=== PATIENT | female | born 1955 | race Caucasian/White ===

== ENCOUNTER 2018-10-01 09:28 | Observation (INO) ==
--- NOTE | 2018-10-01 10:51 | XRay Report ---
XR chest 1V portable CLINICAL HISTORY: Chest Pain COMPARISON STUDY: Chest radiograph September 11, 2015. FINDINGS: Anterior cervical spine fusion is incidentally noted. There is no pneumothorax or pleural e ffusion. Linear left lower lung opacity favors atelectasis. There is mild cardiomegaly. There is no c onsolidation to suggest pneumonia. There is no evidence for pulmonary edema. Lumbar spine fusion hard bond is partially imaged. IMPRESSION: No acute cardiopulmonary findings. Electronically signed by: Juwan Terry M.D. 10/01/2018 10:49 AM
[2018-10-01 10:59] LABS: Basophils # (auto) 0.01 K/uL (0-0.2); Basophils % (auto) 0.2 %; Eosinophils # (auto) 0.08 K/uL (0-0.5); Eosinophils % (auto) 1.3 %; Hematocrit (blood only) 31.8 % (37-47); Hemoglobin 10.6 g/dL (12.0-16.0); Lymphocytes # (auto) 2.07 K/uL (1.2-3.4); Lymphocytes % (auto) 34.8 %; Mean Corpuscular Hgb Conc 33.3 g/dL (32-36); Mean Corpuscular Volume 89.8 fL (80-100); Mean Platelet Volume 9.3 fL (7.4-10.4); Monocytes # (auto) 0.44 K/uL (0.11-0.59); Monocytes % (auto) 7.4 %; Neutrophils # (auto) 3.35 K/uL (1.4-6.5); Neutrophils % (auto) 56.3 %; Platelet Count 258 K/uL (130-400); RDW Coefficient of Variation 14.1 % (11.5-14.5); RDW Standard Deviation 46.8 fL (36.4-46.3); Red Blood Count 3.54 M/uL (4.2-5.4); White Blood Count 5.95 K/uL (4.8-10.8)
[2018-10-01 11:08] LABS: Alanine Aminotransferase 28 U/L (12-78); Albumin Level 3.3 gm/dl (3.4-5.0); Aspartate Aminotransferase 19 U/L (15-37); BUN Creatinine Ratio 26.4 (10-20); Blood Urea Nitrogen 42 mg/dl (7-18); Calcium 9.5 mg/dl (8.5-10.1); Carbon Dioxide 22 mmol/L (21-32); Chloride 107 mmol/L (98-107); Est GFR (African American) 40.2; Est GFR (Non-African American) 34.7; Glucose 239 mg/dl (70-99); Potassium 4.8 mmol/L (3.5-5.1); Sodium 137 mmol/L (136-145)
[2018-10-01 11:31] LABS: Albumin Globulin Ratio 0.8 (0.9-2); Alkaline Phosphatase 94 U/L (45-117); Bilirubin,Total 0.4 mg/dl (0.2-1); Globulin 4.1 gm/dl (2.5-4.0); Total Protein 7.4 gm/dl (6.4-8.2)
[2018-10-01 12:48] LABS: Appearance Urine Clear (Clear); Bacteria Urine Automated Negative (Negative); Bilirubin Urine Negative (Negative); Cast Urine Automated 0 /lpf (0-5); Color Urine Yellow; Epithelial Cell Urine Auto 0-5 /lpf (0-5); Glucose Urine UA Negative (Negative); Ketones Urine Negative (Negative); Leukocyte Esterase Urine Negative (Negative); Nitrite Urine Negative (Negative); Protein Urine Trace (Negative); Specific Gravity Urine 1.009 (1.000-1.030); Urobilinogen Urine Negative (Negative); WBC Urine Automated 0 /hpf (0-5)
--- NOTE | 2018-10-01 13:29 | History & Physical Report ---
Date of Service October 01, 2018 Assessment & Plan (1) Elevated troponin: Unclear etiology at this point - pt is having PINO but no overt chest pain or pressure - Serial troponins - Monitor on telemetry - repeat EKG in AM and as needed for chest pain - Consult cardiology - Holding aspirin for now pending cardio/nephro evaluations (2) Edema, peripheral: Per pt, this is new onset over past two weeks - Nephrology consulted due to slight bump in creatinine, new edema - pt reports not taking the prn furosemide as "I have no idea where it is at home" (3) CKD (chronic kidney disease): - Nephrology consulted - Check urine protein/creatinine ratio, mag, intact PTH (4) HTN (hypertension): - Continue nifedipine for now and monitor (5) Hypothyroidism: TSH today 0.554 - continue same dose of levothyroxine (6) Diabetes mellitus: - Check A1c in AM - Diabetic diet - continue home Lantus with sliding scale insulin coverage. Will adjust as needed during admission - BSG ACHS (7) Renal transplant, status post: Living donor transplant from sister in 2000 - on cellcept and gengraf - Continue same meds - appears supposed to be on BID but has only been taking once daily for years at her preference - Appreciate nephrology input Plan: Plan - Traci Caballero PA-C: Patient seen and reviewed with collaborating physician, Dr. Roth. Plan of care discussed and as outlined above. Pt admitted to the service of Dr. Rico who will follow during admission. Cardiology and nephrology consults pending and appreciated. Froilan Caballero PA-C History of Present Illness Primary Care Provider: PCP - Mecca Munoz MD 63 y/p female with a history of type 1 DM, s/p living donor renal transplant in 2000, presents to the ED today with progressive PINO, peripheral edema and nausea. Found to have a mildly elevated troponin in the ED at 0.27 as well as a slight bump in her creatinine so referred for admission for further evaluation of these complaints. Pt reports being in her usual state of health until approximately two weeks ago when she noted the gradual onset of being "winded more easily than usual" - she gives the example of shopping at [employer] last night and being short of breath by the time she got her groceries to the vehicle. She report this dyspnea resolves with a few minutes of rest. Denies SOB at rest. She also notes new LE edema for two weeks - worse with being on her feet all day but never resolves completely although improves with elevation. No calf pain. Does have chronic neuropathy that she rates as mild in her bilateral feet. Lastly, she notes some nausea and decreased appetite but no vomiting or change in bowel pattern. Urine output is unchanged from baseline - denies urinary frequency, urgency, dysuria, hematuria. Chronic nocturia x 1 episode per night is unchanged. Pt was previously followed by Dr. Brock with last visit in March 2017 - has been on CellCept 500 mg daily and Gengraf 100 mg daily. She was supposed to be taking twice a day but has chosen to take once a day for years instead. At last visit with nephrology, she was noted to have close to 2 grams of proteinuria when quantified so some concern for element of rejection was raised but it appears pt has been lost to follow- up. She reports her last visit with her PCP was a year ago. She does follow with endocrinology - was supposed to get her insulin pump today. Allergies Allergy/AdvReac Type Severity Reaction Status Date / Time adhesive Allergy Mild RED Verified 10/01/18 11:08 SKIN-BREAKS OUT Iodinated Contrast- Oral and AdvReac Unknown DOES NOT Verified 10/01/18 11:08 IV Dye RECEIVE D/T KIDNEY TRANSPLAST Home Medications Home Medications Medication Instructions Recorded Confirmed Type ascorbic acid (vitamin C) [Vitamin 500 mg PO HS 10/01/18 10/01/18 History C] aspirin 81 mg PO HS 10/01/18 10/01/18 History calcium carbonate [Tums] 600 mg PO TID PRN 10/01/18 10/01/18 History cyclosporine modified [Gengraf] 0 mg PO HS 10/01/18 10/01/18 History furosemide [Lasix] 20 mg PO DAILY PRN 10/01/18 10/01/18 History insulin aspart U-100 [Novolog 1 sliding scale dose SUBCUT UD 10/01/18 10/01/18 History U-100 Insulin aspart] insulin glargine [Lantus U-100 16 unit SUBCUT BID 10/01/18 10/01/18 History Insulin] levothyroxine 125 mcg PO QAM 10/01/18 10/01/18 History lisinopril 20 mg PO HS 10/01/18 10/01/18 History multivitamin 1 tab PO HS 10/01/18 10/01/18 History mycophenolate mofetil [CellCept] 500 mg PO HS 10/01/18 10/01/18 History nifedipine 60 mg PO HS 10/01/18 10/01/18 History omega 4-[id number]-npb-fish oil [Fish Oil] 1 cap PO HS 10/01/18 10/01/18 History Past Med/Surg History Medical History CKD (chronic kidney disease) (Chronic) HTN (hypertension) (Chronic) Hypothyroidism (Chronic) radioactive iodine treatments - 1980 Diabetes mellitus (Chronic) Anemia due to chronic kidney disease (Chronic) Diabetes mellitus type 1 (Chronic) Diagnosed at age 8 Diabetic retinopathy (Chronic) History of measles as a child (Resolved) History of mumps as a child (Resolved) Surgical History Renal transplant, status post (Chronic) "2000" H/O dilation and curettage (Chronic) History of tonsillectomy and adenoidectomy (Chronic) History of carpal tunnel surgery (Chronic) History of back surgery (Chronic) "x 2 " Living-donor kidney transplant recipient (Chronic) Social History Current Living Situation: Alone Other Information That Helps Us Care for You: No Feels Safe at Home: Yes Safety Concerns: Feels Safe At This Time Smoking Status: Never smoker Hx Alcohol Use: No Hx Substance Use: No Beliefs That Will Affect Care: None Preferred Language: Maltese Communication Ability: Effective Review of Systems All systems reviewed & are unremarkable except as noted in HPI & below Constitutional: + fatigue and + anorexia (mild); no fever, no chills, no sweats , no body aches and no increased appetite Eyes: + worsening vision (right eye - has seen specialist and been told it's related to the DM); no diplopia and not seeing flashes Ear, Nose, Mouth, Throat: no nasal congestion, no nasal discharge and no sore throat Respiratory: + dyspnea on exertion; no cough, no chest congestion, no pain on inspiration and no wheezing Cardiovascular: + edema (see HPI); no chest pain with activity, no dyspnea at rest, no orthopnea, no paroxysmal nocturnal dyspnea, no lightheadedness, no syncope and no calf pain Gastrointestinal: + abdominal pain (left lower - "Over my kidney") and + nausea ; no bloating, no vomiting, no change in stools, no blood in stools and no melena Genitourinary (Female): no dysuria, no urinary frequency, no urinary hesitancy, no urinary urgency, no hematuria and no flank pain Musculoskeletal: + back pain (chronic lumber) Integumentary: no rash, no skin ulcer and no yellowing of the skin Neurologic: + gait abnormality (related to chronic back pain); no tremor(s), no seizure-like activity, no dizziness and no syncope Mild peripheral neuropathy related to DM Physical Exam 2 Vital Signs (Past 24 Hours): Last Vital Signs Temp 36.8 C 10/01/18 09:37 Pulse 90 10/01/18 11:33 Resp 18 10/01/18 11:33 BP 139/73 10/01/18 11:30 Pulse Ox 95 10/01/18 11:33 Constitutional: WD/WN, vitals as above Eyes: PERRL, conjunctivae normal, anicteric sclerae EOM intact bilaterally ENMT: external ear and nose normal, oropharynx normal Neck: trachea midline Respiratory: normal respiratory effort, lungs clear to auscultation no respiratory distress and no labored breathing Auscultation: no rales, no rhonchi and no wheezes Cardiovascular: Rate/Rhythm: regular rate and regular rhythm Heart Sounds: no click, no gallop and no murmur Vessels: no JVD and no carotid bruit Extremities: normal capillary refill and + edema (1+ bilateral LE edema to pretibial area with associated tenderness); no calf tenderness Gastrointestinal (Abdomen): Inspection/Auscultation: normal bowel sounds Percussion/Palpation: abdomen soft; abdomen nontender, no guarding and abdomen not rigid Negative for CVA tenderness bilaterally Musculoskeletal: no cyanosis or clubbing, extremities motor strength 5/5 Skin: no rashes, warm and dry Psychiatric: A+Ox3, euthymic affect Results & Data Laboratory Results Laboratory Results - last 24 hr 10/01/18 10/01/18 10/01/18 10:30 10:30 12:35 WBC 5.95 RBC 3.54 L Hgb 10.6 L Hct 31.8 L MCV 89.8 MCH 29.9 MCHC 33.3 RDW Std Deviation 46.8 H RDW Coeff of Taran 14.1 Plt Count 258 MPV 9.3 Immature Gran % (Auto) 0.0 Neut % (Auto) 56.3 Lymph % (Auto) 34.8 [place] % (Auto) 7.4 Eos % (Auto) 1.3 Baso % (Auto) 0.2 Immature Gran # (Auto) 0.00 Neut # (Auto) 3.35 Lymph # (Auto) 2.07 [place] # (Auto) 0.44 Eos # (Auto) 0.08 Baso # (Auto) 0.01 Sodium 137 Potassium 4.8 Chloride 107 Carbon Dioxide 22 Anion Gap 8.0 BUN 42 H Creatinine 1.59 H Est Cr Clr Drug Dosing Not Reportable Est GFR ( Amer) 40.2 Est GFR (Non-Af Amer) 34.7 BUN/Creatinine Ratio 26.4 H Glucose 239 H Calcium 9.5 Total Bilirubin 0.4 AST 19 ALT 28 Alkaline Phosphatase 94 Troponin I 0.270 H* Total Protein 7.4 Albumin 3.3 L Globulin 4.1 H Albumin/Globulin Ratio 0.8 L Lipase 69 L TSH 0.554 Urine Color Yellow Urine Appearance Clear Urine pH 5.0 Ur Specific [place] 1.009 Urine Protein Trace H Urine Glucose (UA) Negative Urine Ketones Negative Urine Blood Negative Urine Nitrite Negative Urine Bilirubin Negative Urine Urobilinogen Negative Ur Leukocyte Esterase Negative Urine WBC (Auto) 0 Urine RBC (Auto) 0-4 U Hyaline Cast (Auto) 0 U Epithel Cells (Auto) 0-5 Urine Bacteria (Auto) Negative Diagnostic Findings Chest X-ray 10/01/18 - IMPRESSION: No acute cardiopulmonary findings. Code Status & VTE Plan Code Status Full resuscitation VTE Prophylaxis Plan VTE Prophylaxis will be ordered: Yes Supervising Physician Co-Signing Physician Notes I saw this patient with the physician financial assistant, I participated in the history, physical, review of systems, and physical exam. I reviewed the medications with the patient and the physician financial assistant and helped reconcile the medications. I helped take a detailed family and social history as well. I formulated the assessment and plan personally with the physician financial assistant went over it with the patient. _ (1) Diabetes mellitus Diabetes mellitus complication detail: with unspecified neuropathy Diabetes mellitus complication status: with neurologic complications Diabetes mellitus type: type 1 Qualified Code(s): E10.40 - Type 1 diabetes mellitus with diabetic neuropathy, unspecified (2) Hypothyroidism Hypothyroidism type: unspecified Qualified Code(s): E03.9 - Hypothyroidism, unspecified (3) CKD (chronic kidney disease) Chronic kidney disease stage: unspecified stage Qualified Code(s): N18.9 - Chronic kidney disease, unspecified (4) HTN (hypertension) Hypertension type: essential hypertension Qualified Code(s): I10 - Essential (primary) hypertension
[2018-10-01 14:24] LABS: INR 1.1 (0.9-1.1); Prothrombin Time 10.7 Seconds (9.0-12.0)
[2018-10-01] MEDS ORDERED: GLUCOSE 40% GEL 15 GM TUBE PO PRN (14:24)
[2018-10-01] MEDS ORDERED: GLUCAGON FOR INJ 1 MG VIAL SQ PRN (14:24)
[2018-10-01] MEDS ORDERED: DEXTROSE 50% 50 ML SYRINGE IV PRN (14:24)
[2018-10-01] MEDS ORDERED: GLUCOSE 10 TABS/TUBE PO PRN (14:24)
[2018-10-01] MEDS ORDERED: CARBOHYDRATES FOR HYPOGLYCEMIA PO PRN (14:24)
[2018-10-01 14:36] LABS: Appearance Urine Clear (Clear); Bilirubin Urine Negative (Negative); Color Urine Yellow; Glucose Urine UA Negative (Negative); Ketones Urine Negative (Negative); Leukocyte Esterase Urine Negative (Negative); Nitrite Urine Negative (Negative); Protein Urine Negative (Negative); Specific Gravity Urine <= 1.005 (1.000-1.030); Urobilinogen Urine Negative (Negative); pH Urine 5.5 (4.5-7.5)
[2018-10-01 15:18] LABS: Creatinine Urine Random 24.5 mg/dl; Total Protein Urine Random 13.8 mg/dl (0-11.9)
[2018-10-01 15:31] LABS: Bacteria Urine Negative (Negative); RBC Urine 0-4 /hpf (0-4); WBC Urine 0-5 /hpf (0-5)
--- NOTE | 2018-10-01 17:04 | Emergency Department Note ---
Entered by Madison Cottrell acting as a scribe for History of Present Illness General Chief complaint: Swelling/Edema to Extremity Stated complaint: PAIN IN KIDNEY S/P TRANSPLANT,LEG SWELLING,NAUSEA Time Seen by Provider: 10/01/18 10:02 Source: patient Mode of arrival: ambulatory Limitations: no limitations History of Present Illness Onset (ago): day(s) 1 Location: abdomen Radiation: non-radiation Pain Consistency: + constant Maximum Pain Intensity: 6 Current Pain Intensity: 6 Associated symptoms: + nausea/vomiting (+nausea, -vomiting), + shortness of breath and + other (-hematuria, -dysuria); no chest pain and no fever/chills Treatments prior to arrival: none The patient is a 63 year old female who presents to the Emergency Room with complaints of persistent left sided abdominal pain for the past 1 day. She has a history of CKD and underwent a left sided kidney transplant in 2000. She follows with Dr. Chavez of [facility]. She admits to nausea but denies any vomiting. She denies any recent fever or chills. She denies any hematuria or dysuria. She admits to some shortness of breath but denies any chest pain. She has experienced bilateral leg swelling. She denies any recent trauma or falls. Home Medications Home Medications Medication Instructions Recorded Confirmed Type ascorbic acid (vitamin C) [Vitamin 500 mg PO HS 10/01/18 10/01/18 History C] aspirin 81 mg PO HS 10/01/18 10/01/18 History calcium carbonate [Tums] 600 mg PO TID PRN 10/01/18 10/01/18 History cyclosporine modified [Gengraf] 0 mg PO HS 10/01/18 10/01/18 History furosemide [Lasix] 20 mg PO DAILY PRN 10/01/18 10/01/18 History insulin aspart U-100 [Novolog 1 sliding scale dose SUBCUT UD 10/01/18 10/01/18 History U-100 Insulin aspart] insulin glargine [Lantus U-100 16 unit SUBCUT BID 10/01/18 10/01/18 History Insulin] levothyroxine 125 mcg PO QAM 10/01/18 10/01/18 History lisinopril 20 mg PO HS 10/01/18 10/01/18 History multivitamin 1 tab PO HS 10/01/18 10/01/18 History mycophenolate mofetil [CellCept] 500 mg PO HS 10/01/18 10/01/18 History nifedipine 60 mg PO HS 10/01/18 10/01/18 History omega [id number] oil [Fish Oil] 1 cap PO HS 10/01/18 10/01/18 History Allergies Allergy/AdvReac Type Severity Reaction Status Date / Time adhesive Allergy Mild RED Verified 10/01/18 11:08 SKIN-BREAKS OUT Iodinated Contrast- Oral and AdvReac Unknown DOES NOT Verified 10/01/18 11:08 IV Dye RECEIVE D/T KIDNEY TRANSPLAST Past Med/Surg History Medical History CKD (chronic kidney disease) (Chronic) HTN (hypertension) (Chronic) Hypothyroidism (Chronic) radioactive iodine treatments - 1980 Diabetes mellitus (Chronic) Anemia due to chronic kidney disease (Chronic) Diabetes mellitus type 1 (Chronic) Diagnosed at age 8 Diabetic retinopathy (Chronic) History of measles as a child (Resolved) History of mumps as a child (Resolved) Surgical History Renal transplant, status post (Chronic) "2000" H/O dilation and curettage (Chronic) History of tonsillectomy and adenoidectomy (Chronic) History of carpal tunnel surgery (Chronic) History of back surgery (Chronic) "x 2 " Living-donor kidney transplant recipient (Chronic) Social History Current Living Situation: Alone Other Information That Helps Us Care for You: No Feels Safe at Home: Yes Safety Concerns: Feels Safe At This Time Smoking Status: Never smoker Hx Alcohol Use: No Hx Substance Use: No Beliefs That Will Affect Care: None Preferred Language: Lao Communication Ability: Effective Review of Systems See HPI for pertinent positives & negatives. and A total of 10 systems reviewed and were otherwise negative Physical Exam Vital Signs Vital Signs - 24 hr 10/01/18 09:37 10/01/18 11:30 10/01/18 11:33 Temperature 36.8 C Temperature Source Oral Sepsis Recent Fever Within 48 Hours No Sepsis New/Unexplained Change in Mental Status No Sepsis Action Taken by Nursing No Action Required Pulse Rate 90 90 Pulse Rate [Apical] 80 Pulse Rhythm Regular Pulse Rhythm [Apical] Regular Pulse Strength [Apical] Respiratory Rate 20 18 18 Respiratory Effort / Characteristics Respiratory Depth Normal Respiratory Pattern Blood Pressure 156/77 H Blood Pressure [Left Arm] Blood Pressure [Right Arm] 139/73 Blood Pressure Mean 103 Blood Pressure Mean [Left Arm] Blood Pressure Mean [Right Arm] 95 Blood Pressure Position [Left Arm] Blood Pressure Position [Right Arm] Pulse Oximetry 99 95 95 Oxygen Delivery Method Room Air Room Air Room Air 10/01/18 12:54 10/01/18 13:13 10/01/18 14:00 Temperature Temperature Source Sepsis Recent Fever Within 48 Hours Sepsis New/Unexplained Change in Mental Status Sepsis Action Taken by Nursing Pulse Rate 81 85 Pulse Rate [Apical] Pulse Rhythm Pulse Rhythm [Apical] Pulse Strength [Apical] Respiratory Rate 18 Respiratory Effort / Characteristics Non-Labored Spontaneous Respiratory Depth Normal Respiratory Pattern Regular Blood Pressure 154/56 H Blood Pressure [Left Arm] Blood Pressure [Right Arm] Blood Pressure Mean Blood Pressure Mean [Left Arm] Blood Pressure Mean [Right Arm] Blood Pressure Position [Left Arm] Blood Pressure Position [Right Arm] Pulse Oximetry 96 Oxygen Delivery Method Room Air Room Air 10/01/18 14:20 10/01/18 15:59 Temperature 37.1 C 36.9 C Temperature Source Oral Oral Sepsis Recent Fever Within 48 Hours Sepsis New/Unexplained Change in Mental Status Sepsis Action Taken by Nursing Pulse Rate Pulse Rate [Apical] 80 85 Pulse Rhythm Pulse Rhythm [Apical] Regular Regular Pulse Strength [Apical] Normal Normal Respiratory Rate 16 17 Respiratory Effort / Characteristics Non-Labored Spontaneous Non-Labored Respiratory Depth Normal Normal Respiratory Pattern Regular Blood Pressure Blood Pressure [Left Arm] 184/70 H Blood Pressure [Right Arm] 134/78 121/74 Blood Pressure Mean Blood Pressure Mean [Left Arm] 108 Blood Pressure Mean [Right Arm] 96 89 Blood Pressure Position [Left Arm] Sitting Blood Pressure Position [Right Arm] Sitting Sitting Pulse Oximetry 98 97 Oxygen Delivery Method Room Air Room Air General: Well developed, well nourished, non-ill appearing middle aged female, in no acute distress, breathing comfortably on room air. Normal speech HEENT: Normal cephalic atraumatic. Pupils are equal round and reactive to light. Extraocular movements are intact. Oropharynx is pink with moist mucous membranes. No swelling of the mouth lips or tongue. Neck: Supple with a midline trachea. No meningeal signs or stiffness, no JVD or bruits. No Stridor. Chest: Clear to auscultation bilaterally. No wheezes or rhonchi. No increased work of breathing. Heart: Regular rate and rhythm without murmurs or gallops. Abdomen: Soft, not reproducibly tender in left lower abdomen where transplanted kidney is, no redness or warmth, nondistended without rebound guarding or rigidity. Extremities: Trace 1+ pitting edema in bilateral ankles. No cyanosis or clubbing. No calf tenderness or assymetry Spine/Back. Non tender to palpation. No CVA tenderness Skin: Good turgor without rashes. Neurologic exam: Cranial nerves two through 12 are intact. Motor and sensation are intact and symmetrical throughout. Course 1003: Past medical records reviewed. The patient was evaluated in room A11A, and a complete history and physical examination were performed. 1145: I reevaluated the patient. She is resting comfortably. I discussed my recommendation she remain in the hospital for further evaluation and management and she verbalized complete understanding and agreement. 1149: [facility] The patient will be further evaluated. Consultations Consultation #1: [facility] The patient will be further evaluated. Time: 11:49 Medical Decision Making Differential Diagnosis The differential diagnoses considered include renal failure, electrolyte or metabolic abnormality, CHF and thyroid disease. Medical Records Attestation: I reviewed the patient's medical records. Home Medications Current Medication List: was personally reviewed by me Laboratory Data Attestation: I reviewed the patient's lab results. Result diagrams: 10/01/18 10:30 10/01/18 10:30 Lab Results 10/01/18 10/01/18 10/01/18 Range/Units 10:30 10:30 10:30 WBC 5.95 (4.8-10.8) K/uL RBC 3.54 L (4.2-5.4) M/uL Hgb 10.6 L (12.0-16.0) g/dL Hct 31.8 L (37-47) % MCV 89.8 (80-100) fL MCH 29.9 (25-34) pg MCHC 33.3 (32-36) g/dL RDW Std Deviation 46.8 H (36.4-46.3) fL RDW Coeff of Taran 14.1 (11.5-14.5) % Plt Count 258 (130-400) K/uL MPV 9.3 (7.4-10.4) fL Immature Gran % (Auto) 0.0 % Neut % (Auto) 56.3 % Lymph % (Auto) 34.8 % Lanier % (Auto) 7.4 % Eos % (Auto) 1.3 % Baso % (Auto) 0.2 % Immature Gran # (Auto) 0.00 (0.00-0.02) K/uL Neut # (Auto) 3.35 (1.4-6.5) K/uL Lymph # (Auto) 2.07 (1.2-3.4) K/uL Lanier # (Auto) 0.44 (0.11-0.59) K/uL Eos # (Auto) 0.08 (0-0.5) K/uL Baso # (Auto) 0.01 (0-0.2) K/uL PT 10.7 (9.0-12.0) Seconds INR 1.1 (0.9-1.1) Sodium 137 (136-145) mmol/L Potassium 4.8 (3.5-5.1) mmol/L Chloride 107 (98-107) mmol/L Carbon Dioxide 22 (21-32) mmol/L Anion Gap 8.0 (3-11) BUN 42 H (7-18) mg/dl Creatinine 1.59 H (0.6-1.2) mg/dl Est Cr Clr Drug Dosing Not Reportable Est GFR ( Amer) 40.2 Est GFR (Non-Af Amer) 34.7 BUN/Creatinine Ratio 26.4 H (10-20) Glucose 239 H (70-99) mg/dl POC Glucose (70-99) Calcium 9.5 (8.5-10.1) mg/dl Total Bilirubin 0.4 (0.2-1) mg/dl AST 19 (15-37) U/L ALT 28 (12-78) U/L Alkaline Phosphatase 94 (45-117) U/L Troponin I 0.270 H* (0-0.045) ng/ml Total Protein 7.4 (6.4-8.2) gm/dl Albumin 3.3 L (3.4-5.0) gm/dl Globulin 4.1 H (2.5-4.0) gm/dl Albumin/Globulin Ratio 0.8 L (0.9-2) Lipase 69 L (73-393) U/L TSH 0.554 (0.300-4.500) uIu/ml Urine Color Urine Appearance (Clear) Urine pH (4.5-7.5) Ur Specific [place] (1.000-1.030) Urine Protein (Negative) Urine Glucose (UA) (Negative) Urine Ketones (Negative) Urine Blood (Negative) Urine Nitrite (Negative) Urine Bilirubin (Negative) Urine Urobilinogen (Negative) Ur Leukocyte Esterase (Negative) Urine WBC (Auto) (0-5) /hpf Urine RBC (Auto) (0-4) /hpf U Hyaline Cast (Auto) (0-5) /lpf U Epithel Cells (Auto) (0-5) /lpf Urine Bacteria (Auto) (Negative) Urine RBC (0-4) /hpf Urine WBC (0-5) /hpf Ur Epithelial Cells (0-5) /lpf Urine Bacteria (Negative) Ur Random Creatinine mg/dl U Random Total Protein (0-11.9) mg/dl Protein/Creatinin Ratio (0-0.2) 10/01/18 10/01/18 10/01/18 Range/Units 12:35 13:55 13:55 WBC (4.8-10.8) K/uL RBC (4.2-5.4) M/uL Hgb (12.0-16.0) g/dL Hct (37-47) % MCV (80-100) fL MCH (25-34) pg MCHC (32-36) g/dL RDW Std Deviation (36.4-46.3) fL RDW Coeff of Taran (11.5-14.5) % Plt Count (130-400) K/uL MPV (7.4-10.4) fL Immature Gran % (Auto) % Neut % (Auto) % Lymph % (Auto) % Lanier % (Auto) % Eos % (Auto) % Baso % (Auto) % Immature Gran # (Auto) (0.00-0.02) K/uL Neut # (Auto) (1.4-6.5) K/uL Lymph # (Auto) (1.2-3.4) K/uL Lanier # (Auto) (0.11-0.59) K/uL Eos # (Auto) (0-0.5) K/uL Baso # (Auto) (0-0.2) K/uL PT (9.0-12.0) Seconds INR (0.9-1.1) Sodium (136-145) mmol/L Potassium (3.5-5.1) mmol/L Chloride (98-107) mmol/L Carbon Dioxide (21-32) mmol/L Anion Gap (3-11) BUN (7-18) mg/dl Creatinine (0.6-1.2) mg/dl Est Cr Clr Drug Dosing Est GFR ( Amer) Est GFR (Non-Af Amer) BUN/Creatinine Ratio (10-20) Glucose (70-99) mg/dl POC Glucose (70-99) Calcium (8.5-10.1) mg/dl Total Bilirubin (0.2-1) mg/dl AST (15-37) U/L ALT (12-78) U/L Alkaline Phosphatase (45-117) U/L Troponin I (0-0.045) ng/ml Total Protein (6.4-8.2) gm/dl Albumin (3.4-5.0) gm/dl Globulin (2.5-4.0) gm/dl Albumin/Globulin Ratio (0.9-2) Lipase (73-393) U/L TSH (0.300-4.500) uIu/ml Urine Color Yellow Yellow Urine Appearance Clear Clear (Clear) Urine pH 5.0 5.5 (4.5-7.5) Ur Specific [place] 1.009 <= 1.005 (1.000-1.030) Urine Protein Trace H Negative (Negative) Urine Glucose (UA) Negative Negative (Negative) Urine Ketones Negative Negative (Negative) Urine Blood Negative Negative (Negative) Urine Nitrite Negative Negative (Negative) Urine Bilirubin Negative Negative (Negative) Urine Urobilinogen Negative Negative (Negative) Ur Leukocyte Esterase Negative Negative (Negative) Urine WBC (Auto) 0 (0-5) /hpf Urine RBC (Auto) 0-4 (0-4) /hpf U Hyaline Cast (Auto) 0 (0-5) /lpf U Epithel Cells (Auto) 0-5 (0-5) /lpf Urine Bacteria (Auto) Negative (Negative) Urine RBC 0-4 (0-4) /hpf Urine WBC 0-5 (0-5) /hpf Ur Epithelial Cells 0-5 (0-5) /lpf Urine Bacteria Negative (Negative) Ur Random Creatinine 24.5 mg/dl U Random Total Protein 13.8 H (0-11.9) mg/dl Protein/Creatinin Ratio 0.6 H (0-0.2) 10/01/18 Range/Units 13:59 WBC (4.8-10.8) K/uL RBC (4.2-5.4) M/uL Hgb (12.0-16.0) g/dL Hct (37-47) % MCV (80-100) fL MCH (25-34) pg MCHC (32-36) g/dL RDW Std Deviation (36.4-46.3) fL RDW Coeff of Taran (11.5-14.5) % Plt Count (130-400) K/uL MPV (7.4-10.4) fL Immature Gran % (Auto) % Neut % (Auto) % Lymph % (Auto) % Lanier % (Auto) % Eos % (Auto) % Baso % (Auto) % Immature Gran # (Auto) (0.00-0.02) K/uL Neut # (Auto) (1.4-6.5) K/uL Lymph # (Auto) (1.2-3.4) K/uL Lanier # (Auto) (0.11-0.59) K/uL Eos # (Auto) (0-0.5) K/uL Baso # (Auto) (0-0.2) K/uL PT (9.0-12.0) Seconds INR (0.9-1.1) Sodium (136-145) mmol/L Potassium (3.5-5.1) mmol/L Chloride (98-107) mmol/L Carbon Dioxide (21-32) mmol/L Anion Gap (3-11) BUN (7-18) mg/dl Creatinine (0.6-1.2) mg/dl Est Cr Clr Drug Dosing Est GFR ( Amer) Est GFR (Non-Af Amer) BUN/Creatinine Ratio (10-20) Glucose (70-99) mg/dl POC Glucose 109 H (70-99) Calcium (8.5-10.1) mg/dl Total Bilirubin (0.2-1) mg/dl AST (15-37) U/L ALT (12-78) U/L Alkaline Phosphatase (45-117) U/L Troponin I (0-0.045) ng/ml Total Protein (6.4-8.2) gm/dl Albumin (3.4-5.0) gm/dl Globulin (2.5-4.0) gm/dl Albumin/Globulin Ratio (0.9-2) Lipase (73-393) U/L TSH (0.300-4.500) uIu/ml Urine Color Urine Appearance (Clear) Urine pH (4.5-7.5) Ur Specific [place] (1.000-1.030) Urine Protein (Negative) Urine Glucose (UA) (Negative) Urine Ketones (Negative) Urine Blood (Negative) Urine Nitrite (Negative) Urine Bilirubin (Negative) Urine Urobilinogen (Negative) Ur Leukocyte Esterase (Negative) Urine WBC (Auto) (0-5) /hpf Urine RBC (Auto) (0-4) /hpf U Hyaline Cast (Auto) (0-5) /lpf U Epithel Cells (Auto) (0-5) /lpf Urine Bacteria (Auto) (Negative) Urine RBC (0-4) /hpf Urine WBC (0-5) /hpf Ur Epithelial Cells (0-5) /lpf Urine Bacteria (Negative) Ur Random Creatinine mg/dl U Random Total Protein (0-11.9) mg/dl Protein/Creatinin Ratio (0-0.2) Imaging Data Radiologist's Impression: Radiology results as stated below per my review and the radiologist's interpretation: XR chest 1V portable CLINICAL HISTORY: Chest Pain COMPARISON STUDY: Chest radiograph September 11, 2015. FINDINGS: Anterior cervical spine fusion is incidentally noted. There is no pneumothorax or pleural effusion. Linear left lower lung opacity favors atelectasis. There is mild cardiomegaly. There is no consolidation to suggest pneumonia. There is no evidence for pulmonary edema. Lumbar spine fusion hardware is partially imaged. IMPRESSION: No acute cardiopulmonary findings. Electronically signed by: Juwan Terry M.D. 10/01/2018 10:49 AM ECG Data Attestation: I personally reviewed and interpreted this ECG as follows: Indication: abdominal pain Rate (beats per minute): 85 Rhythm: normal sinus Findings: + other (Poor baseline, left anterior fasicular block); no acute ischemic change MDM Narrative This patient comes in as described above. She has a history of a renal transplant and comes in because she is concerned that she has lower extremity edema and pain over her transplant site. She had no fever chills. no chest pain. she has had some shortness of breath occasionally with exertion. She does not exert much because of her chronic back issues. This edema has been going on for quite some time but she has not gotten checked out. IV access, labs ,EKG, chest x-ray, and multiple blood test was obtained. Chest x-ray does not suggest pulmonary edema, pneumonia ,or pneumothorax. Her EKG does not suggest acute coronary syndrome or arrhythmia. She has no acute electrolyte or metabolic abnormalities with exception of creatinine 1.59. Her most recent creatinine was about 2 years ago was 1.4 so it is up but not profoundly. I was concerned however her troponin is elevated at 0.27. She has been having intermittent shortness of breath and it could be that the peripheral edema is related to her heart rather than her kidneys. I have also ordered urinalysis and culture. She has nothing to suggest infection at this point otherwise. I have consulted the hospitalist to see her in the ER for these measures. Impression & Plan Elevated troponin, Edema, peripheral, CHF (congestive heart failure), Renal insufficiency Discharge Plan Visit Data *Final* Discharge Date/Time: 10/01/18 13:13 Chief Complaint: Swelling/Edema to Extremity Stated Complaint: PAIN IN KIDNEY S/P TRANSPLANT,LEG SWELLING,NAUSEA ED Provider: Eran Matthew Discharge Problem: Elevated troponin, Edema, peripheral, CHF (congestive heart failure), Renal insufficiency Patient Disposition: Admitted As Inpatient Discharge Instructions Interventions: ED Discharge Assessment Last Done: 10/01/18 13:13 The scribe's documentation has been prepared under my direction and personally reviewed by me in its entirety. I confirm that the note above accurately reflects all work, treatment, procedures, and medical decision making performed by me.
[2018-10-01] MEDS: INSULIN ASPART 100 UNITS/ML 3 ML PEN SC SCH ×2 (17:25→20:56)
--- NOTE | 2018-10-01 18:11 | Cardiology Consultation ---
Date of Consultation October 01, 2018 Assessment & Plan (1) Elevated troponin: Patient presented to the emergency room today for evaluation of left lower abdominal pain and flank pain, concern for possible kidney issues was noted to have an incidental troponin elevation on laboratory screening. EKGs demonstrate no acute evolution patient is aware of increasing recent peripheral edema. Denies any history of past angina or past coronary artery disease with no multiple risk factors are present. Recommendations with continue to follow serial troponins. Echocardiogram be ordered to assess LV function assess for wall motion abnormalities. Further recommendations as clinical course progresses current presentation does not appear to be such of an acute coronary syndrome troponins may be elevated for noncardiac source. Risk factors however warrant cardiac evaluation (2) Edema, peripheral: (3) CKD (chronic kidney disease), stage III: (4) Renal transplant, status post: History of Present Illness Reason for Consultation: Elevated troponin Requesting Physician: Prema Caballero/Claudia Rico DO Attending Physician: Claudia Rico DO History of Present Illness Patient is a 63-year-old female with complex history which includes type 1 diabetes mellitus, hypertension, hypothyroidism, chronic renal insufficiency status post living donor renal transplant 2000 on chronic immunosuppressive therapy who presents now noting recent difficulties with increasing lower extremity edema and a feeling like "my transplant kidney hurts" left-sided abdominal and flank pain. Patient was concerned that this is reflecting worsening renal function and she presented for further evaluation. She denies any prior cardiac history notes no anginal symptoms does admit to some exertional dyspnea but no orthopnea. Denies tachypalpitations syncope or near syncope. Notes no history rheumatic fever scarlet fever. Notes no history of TIA or stroke. Notes no recent fevers chills or infections. Has been generally compliant with her medications. Notes she has had a diuretic for usage in the past but with no recent use. Notes no bleeding difficulties melena hematochezia dysuria hematuria. Weight per patient's been generally stable denies any sleep disturbance Evaluation in the emergency room reflected elevated troponin as part laboratory screening. Patient is referred now for further evaluation. Allergies Allergy/AdvReac Type Severity Reaction Status Date / Time adhesive Allergy Mild RED Verified 10/01/18 11:08 SKIN-BREAKS OUT Iodinated Contrast- Oral and AdvReac Unknown DOES NOT Verified 10/01/18 11:08 IV Dye RECEIVE D/T KIDNEY TRANSPLAST Home Medications Home Medications Medication Instructions Recorded Confirmed Type ascorbic acid (vitamin C) [Vitamin 500 mg PO HS 10/01/18 10/01/18 History C] aspirin 81 mg PO HS 10/01/18 10/01/18 History calcium carbonate [Tums] 600 mg PO TID PRN 10/01/18 10/01/18 History cyclosporine modified [Gengraf] 0 mg PO HS 10/01/18 10/01/18 History furosemide [Lasix] 20 mg PO DAILY PRN 10/01/18 10/01/18 History insulin aspart U-100 [Novolog 1 sliding scale dose SUBCUT UD 10/01/18 10/01/18 History U-100 Insulin aspart] insulin glargine [Lantus U-100 16 unit SUBCUT BID 10/01/18 10/01/18 History Insulin] levothyroxine 125 mcg PO QAM 10/01/18 10/01/18 History lisinopril 20 mg PO HS 10/01/18 10/01/18 History multivitamin 1 tab PO HS 10/01/18 10/01/18 History mycophenolate mofetil [CellCept] 500 mg PO HS 10/01/18 10/01/18 History nifedipine 60 mg PO HS 10/01/18 10/01/18 History omega 5-vnq-pkb-fish oil [Fish Oil] 1 cap PO HS 10/01/18 10/01/18 History Patient History Medical History CKD (chronic kidney disease) (Chronic) HTN (hypertension) (Chronic) Hypothyroidism (Chronic) radioactive iodine treatments - 1980 Diabetes mellitus (Chronic) Anemia due to chronic kidney disease (Chronic) Diabetes mellitus type 1 (Chronic) Diagnosed at age 8 Diabetic retinopathy (Chronic) History of measles as a child (Resolved) History of mumps as a child (Resolved) Surgical History Renal transplant, status post (Chronic) "2000" H/O dilation and curettage (Chronic) History of tonsillectomy and adenoidectomy (Chronic) History of carpal tunnel surgery (Chronic) History of back surgery (Chronic) "x 2 " Living-donor kidney transplant recipient (Chronic) Social History Current Living Situation: Alone Other Information That Helps Us Care for You: No Feels Safe at Home: Yes Safety Concerns: Feels Safe At This Time Smoking Status: Never smoker Hx Alcohol Use: No Hx Substance Use: No Beliefs That Will Affect Care: None Preferred Language: British Communication Ability: Effective Review of Systems As per HPI and otherwise negative Physical Exam 2 Vital Signs (Past 24 Hours): Last Vital Signs Temp 36.9 C 10/01/18 15:59 Pulse 85 10/01/18 15:59 Resp 17 10/01/18 15:59 BP 121/74 10/01/18 15:59 Pulse Ox 97 10/01/18 15:59 Physical Exam: Patient is an age-appropriate female currently no acute distress Constitutional: WD/WN, vitals as above ENMT: external ear and nose normal, oropharynx normal Neck: trachea midline, no thyromegaly Respiratory: normal respiratory effort, lungs clear to auscultation Cardiovascular: Vessels: no carotid bruit Extremities: no edema Regular rate and rhythm with normal S1-S2 no audible murmur gallop or rub PMI is nondisplaced Gastrointestinal (Abdomen): Minimal tenderness in the left lower quadrant no rebound or guarding. Abdomen is soft there is no palpable past megaly Musculoskeletal: no cyanosis or clubbing, extremities motor strength 5/5 Results & Data Laboratory Results Laboratory Results - last 24 hr 10/01/18 10/01/18 10/01/18 10:30 10:30 10:30 WBC 5.95 RBC 3.54 L Hgb 10.6 L Hct 31.8 L MCV 89.8 MCH 29.9 MCHC 33.3 RDW Std Deviation 46.8 H RDW Coeff of Taran 14.1 Plt Count 258 MPV 9.3 Immature Gran % (Auto) 0.0 Neut % (Auto) 56.3 Lymph % (Auto) 34.8 [place] % (Auto) 7.4 Eos % (Auto) 1.3 Baso % (Auto) 0.2 Immature Gran # (Auto) 0.00 Neut # (Auto) 3.35 Lymph # (Auto) 2.07 [place] # (Auto) 0.44 Eos # (Auto) 0.08 Baso # (Auto) 0.01 PT 10.7 INR 1.1 Sodium 137 Potassium 4.8 Chloride 107 Carbon Dioxide 22 Anion Gap 8.0 BUN 42 H Creatinine 1.59 H Est Cr Clr Drug Dosing Not Reportable Est GFR ( Amer) 40.2 Est GFR (Non-Af Amer) 34.7 BUN/Creatinine Ratio 26.4 H Glucose 239 H POC Glucose Calcium 9.5 Total Bilirubin 0.4 AST 19 ALT 28 Alkaline Phosphatase 94 Troponin I 0.270 H* Total Protein 7.4 Albumin 3.3 L Globulin 4.1 H Albumin/Globulin Ratio 0.8 L Lipase 69 L TSH 0.554 Urine Color Urine Appearance Urine pH Ur Specific Reva Urine Protein Urine Glucose (UA) Urine Ketones Urine Blood Urine Nitrite Urine Bilirubin Urine Urobilinogen Ur Leukocyte Esterase Urine WBC (Auto) Urine RBC (Auto) U Hyaline Cast (Auto) U Epithel Cells (Auto) Urine Bacteria (Auto) Urine RBC Urine WBC Ur Epithelial Cells Urine Bacteria Ur Random Creatinine U Random Total Protein Protein/Creatinin Ratio 10/01/18 10/01/18 10/01/18 12:35 13:55 13:55 WBC RBC Hgb Hct MCV MCH MCHC RDW Std Deviation RDW Coeff of Taran Plt Count MPV Immature Gran % (Auto) Neut % (Auto) Lymph % (Auto) [place] % (Auto) Eos % (Auto) Baso % (Auto) Immature Gran # (Auto) Neut # (Auto) Lymph # (Auto) [place] # (Auto) Eos # (Auto) Baso # (Auto) PT INR Sodium Potassium Chloride Carbon Dioxide Anion Gap BUN Creatinine Est Cr Clr Drug Dosing Est GFR ( Amer) Est GFR (Non-Af Amer) BUN/Creatinine Ratio Glucose POC Glucose Calcium Total Bilirubin AST ALT Alkaline Phosphatase Troponin I Total Protein Albumin Globulin Albumin/Globulin Ratio Lipase TSH Urine Color Yellow Yellow Urine Appearance Clear Clear Urine pH 5.0 5.5 Ur Specific Reva 1.009 <= 1.005 Urine Protein Trace H Negative Urine Glucose (UA) Negative Negative Urine Ketones Negative Negative Urine Blood Negative Negative Urine Nitrite Negative Negative Urine Bilirubin Negative Negative Urine Urobilinogen Negative Negative Ur Leukocyte Esterase Negative Negative Urine WBC (Auto) 0 Urine RBC (Auto) 0-4 U Hyaline Cast (Auto) 0 U Epithel Cells (Auto) 0-5 Urine Bacteria (Auto) Negative Urine RBC 0-4 Urine WBC 0-5 Ur Epithelial Cells 0-5 Urine Bacteria Negative Ur Random Creatinine 24.5 U Random Total Protein 13.8 H Protein/Creatinin Ratio 0.6 H 10/01/18 10/01/18 10/01/18 13:59 16:43 17:20 WBC RBC Hgb Hct MCV MCH MCHC RDW Std Deviation RDW Coeff of Taran Plt Count MPV Immature Gran % (Auto) Neut % (Auto) Lymph % (Auto) [place] % (Auto) Eos % (Auto) Baso % (Auto) Immature Gran # (Auto) Neut # (Auto) Lymph # (Auto) [place] # (Auto) Eos # (Auto) Baso # (Auto) PT INR Sodium Potassium Chloride Carbon Dioxide Anion Gap BUN Creatinine Est Cr Clr Drug Dosing Est GFR ( Amer) Est GFR (Non-Af Amer) BUN/Creatinine Ratio Glucose POC Glucose 109 H 218 H Calcium Total Bilirubin AST ALT Alkaline Phosphatase Troponin I 0.350 H* Total Protein Albumin Globulin Albumin/Globulin Ratio Lipase TSH Urine Color Urine Appearance Urine pH Ur Specific Reva Urine Protein Urine Glucose (UA) Urine Ketones Urine Blood Urine Nitrite Urine Bilirubin Urine Urobilinogen Ur Leukocyte Esterase Urine WBC (Auto) Urine RBC (Auto) U Hyaline Cast (Auto) U Epithel Cells (Auto) Urine Bacteria (Auto) Urine RBC Urine WBC Ur Epithelial Cells Urine Bacteria Ur Random Creatinine U Random Total Protein Protein/Creatinin Ratio
[2018-10-01 19:54] LABS: Hyaline Casts Urine 0-5 /lpf (0-5)
[2018-10-01] MEDS: ASCORBIC ACID 500 MG TAB PO SCH (20:40)
[2018-10-01] MEDS: NIFEdipine EXTENDED REL 30 MG TABCR PO SCH (20:40)
[2018-10-01] MEDS: LISINOPRIL 20 MG TAB PO SCH (20:41)
[2018-10-01] MEDS: cycloSPORINE 25 MG CAP PO SCH (20:41)
[2018-10-01] MEDS: HEPARIN SOD 5,000 UNIT/0.5 ML VIAL SQ SCH (20:58)
[2018-10-01] MEDS ORDERED: INSULIN GLARGINE SOLOSTAR 100 UNITS/ML 3 ML PEN SQ SCH ×2 (21:00)
--- NOTE | 2018-10-01 21:13 | Nephrology Consultation ---
Date of Consultation October 01, 2018 Assessment & Plan (1) Renal transplant, status post: large gap (about 13 mos) since her last labs > baseline 1.5 creatinine and on presentation 1.6; chemistries acceptable; she is very concerned about volume overload but no evidence on exam or studies; fortunately for her no nephrosis -cont customary outpatient immunosuppression; not optimal and she may well have underlying chronic rejection by this point; however this far out from transplant would not change immunosuppression -will get renal u/s given focal/point tenderness; however no voiding sx and w/ essentially stable allograft function do not anticipate startling findings Present on Admission?: Yes (2) CKD (chronic kidney disease), stage III: baseline creatinine 2017 was 1.5 w/ reported 2000 mg daily proteinuria; here creatinine 1.6 w/ 600 mg proteinuria. bp w/ adequate control; not volume overloaded; electrolytes acceptable. no concern for nephrotic syndrome. some anemia but accpetable -daily bmp -cont current bp meds including ACEI -f/u cardiology eval -plan to keep upcomign [facility] clinic appt Present on Admission?: Yes History of Present Illness Reason for Consultation: renal insufficiency; renal transplant pt Requesting Physician: Dr Roth Attending Physician: Claudia Rico, DO History of Present Illness 63 y/o F whom I'm asked to see for renal insufficiency and f/u of renal txplt care. PMH includes DM1 since age 8, esrd from DM s/p 2000 living related renal transplant, hypothyroid, HTN, in past chronic back pain. She follows w/ nephrology but has not been to our clinic since 03/2017 and has not given labs since 08/2017 when her creatinine was 1.5; hx of 2 gm daily proteinuria as of 2016. Her immunosuppression is mycophenolate 500 mg and cyclosporine 100 mg both once daily (advised to take bid but declines to do so since prior to last clinic visit). she called our office yesterday w/ concerns about increasing LE edema, nausea, malaise, and fullness/pain over her allograft. She denied fever , diminished functional status, sob including exertional dyspnea or chest pain at that time or on review today. she denies change in habitual medication regimen or lack of access to meds. She states that she went shopping last evening and felt quite tired at the end of the trip. she was advised to get labs and to keep upcoming nephro appt mid September and to go to ER w/ worsening/ concerning sx. she continued to feel poorly and opted to come to er for eval. Noted on presentation to have creatinine 1.6 and troponin 0.29. cardiology is following pt > index of suspicion for ACS is low however with her significant risk factors will trend troponins, get TTE, observe. she has lasix but states was unable to take w/ worsened edema b/c could not find it at home. Allergies Allergy/AdvReac Type Severity Reaction Status Date / Time adhesive Allergy Mild RED Verified 10/01/18 11:08 SKIN-BREAKS OUT Iodinated Contrast- Oral and AdvReac Unknown DOES NOT Verified 10/01/18 11:08 IV Dye RECEIVE D/T KIDNEY TRANSPLAST Home Medications Home Medications Medication Instructions Recorded Confirmed Type ascorbic acid (vitamin C) [Vitamin 500 mg PO HS 10/01/18 10/01/18 History C] aspirin 81 mg PO HS 10/01/18 10/01/18 History calcium carbonate [Tums] 600 mg PO TID PRN 10/01/18 10/01/18 History cyclosporine modified [Gengraf] 0 mg PO HS 10/01/18 10/01/18 History furosemide [Lasix] 20 mg PO DAILY PRN 10/01/18 10/01/18 History insulin aspart U-100 [Novolog 1 sliding scale dose SUBCUT UD 10/01/18 10/01/18 History U-100 Insulin aspart] insulin glargine [Lantus U-100 16 unit SUBCUT BID 10/01/18 10/01/18 History Insulin] levothyroxine 125 mcg PO QAM 10/01/18 10/01/18 History lisinopril 20 mg PO HS 10/01/18 10/01/18 History multivitamin 1 tab PO HS 10/01/18 10/01/18 History mycophenolate mofetil [CellCept] 500 mg PO HS 10/01/18 10/01/18 History nifedipine 60 mg PO HS 10/01/18 10/01/18 History omega 1-sej-mvg-fish oil [Fish Oil] 1 cap PO HS 10/01/18 10/01/18 History Patient History Medical History CKD (chronic kidney disease) (Chronic) HTN (hypertension) (Chronic) Hypothyroidism (Chronic) radioactive iodine treatments - 1980 Diabetes mellitus (Chronic) Anemia due to chronic kidney disease (Chronic) Diabetes mellitus type 1 (Chronic) Diagnosed at age 8 Diabetic retinopathy (Chronic) History of measles as a child (Resolved) History of mumps as a child (Resolved) Surgical History Renal transplant, status post (Chronic) "2000" H/O dilation and curettage (Chronic) History of tonsillectomy and adenoidectomy (Chronic) History of carpal tunnel surgery (Chronic) History of back surgery (Chronic) "x 2 " Living-donor kidney transplant recipient (Chronic) Social History Current Living Situation: Alone Other Information That Helps Us Care for You: No Feels Safe at Home: Yes Safety Concerns: Feels Safe At This Time Smoking Status: Never smoker Hx Alcohol Use: No Hx Substance Use: No Beliefs That Will Affect Care: None Preferred Language: Armenian Communication Ability: Effective Review of Systems Constitutional: + fatigue; no fever, no body aches, no weakness and no weight gain cannot state if she has gained wt > bought scale yesterday Eyes: no worsening vision Ear, Nose, Mouth, Throat: no dry mouth Respiratory: no dyspnea Cardiovascular: + edema; no chest pain, no dyspnea on exertion, no orthopnea, no palpitations and no lightheadedness Gastrointestinal: + abdominal pain (over transplanted kidney); no nausea, no vomiting and no change in bowel habits Genitourinary (Female): no dysuria, no difficulty urinating, no urinary frequency, no urinary hesitancy, no urinary urgency and no hematuria Musculoskeletal: + swelling and + stiffness; no back pain and no myalgia Integumentary: + non-healing lesions (stable chronic R aleman x mos); no rash Neurologic: + paresthesia; no localized weakness, no generalized weakness and no confusion Psychiatric: + anxiety; no depression Endocrine: + fatigue; no polyuria and no cold intolerance Hematologic / Lymphatic: no easy bleeding Physical Exam 2 Vital Signs (Past 24 Hours): Last Vital Signs Temp 37.0 C 10/01/18 20:11 Pulse 87 10/01/18 20:11 Resp 18 10/01/18 20:11 BP 117/66 10/01/18 20:11 Pulse Ox 96 10/01/18 20:11 Constitutional: well developed, well nourished and average body habitus on RA, A& 0 x 3 Eyes: EOM intact bilaterally ENMT: Ears: no external ear abnormality Nose: no external nose abnormality Mouth: + dry oral mucous membranes Neck: no nuchal rigidity Respiratory: normal respiratory effort Auscultation: + diminished lung sounds Cardiovascular: Rate/Rhythm: regular rate and regular rhythm Extremities: + edema (at very most trace BLE) Gastrointestinal (Abdomen): Inspection/Auscultation: normal bowel sounds Percussion/Palpation: abdomen soft; abdomen nontender (except for point tenderness over LLQ allograft; no bruit) and no guarding Musculoskeletal: Extremities: strength 5/5 throughout Skin: no rashes, warm and dry + lesion (1/2 dollar size R aleman) Neurologic: vera, fluent speech, no tremor Psychiatric: Orientation: alert and oriented x 3 Apperance: appropriately groomed Speech: normal rate/rhythm/volume of speech Affect: + anxious affect Mood: + anxious mood Thought Process: goal directed thought process and + tangential thought process Genitourinary: no nassar Results & Data Laboratory Results Abnormal lab results 10/01/18 10/01/18 10/01/18 Range/Units 10:30 10:30 12:35 RBC 3.54 L (4.2-5.4) M/uL Hgb 10.6 L (12.0-16.0) g/dL Hct 31.8 L (37-47) % RDW Std Deviation 46.8 H (36.4-46.3) fL BUN 42 H (7-18) mg/dl Creatinine 1.59 H (0.6-1.2) mg/dl BUN/Creatinine Ratio 26.4 H (10-20) Glucose 239 H (70-99) mg/dl POC Glucose (70-99) Troponin I 0.270 H* (0-0.045) ng/ml Albumin 3.3 L (3.4-5.0) gm/dl Globulin 4.1 H (2.5-4.0) gm/dl Albumin/Globulin Ratio 0.8 L (0.9-2) Lipase 69 L (73-393) U/L Urine Protein Trace H (Negative) U Random Total Protein (0-11.9) mg/dl Protein/Creatinin Ratio (0-0.2) 10/01/18 10/01/18 10/01/18 Range/Units 13:55 13:59 16:43 RBC (4.2-5.4) M/uL Hgb (12.0-16.0) g/dL Hct (37-47) % RDW Std Deviation (36.4-46.3) fL BUN (7-18) mg/dl Creatinine (0.6-1.2) mg/dl BUN/Creatinine Ratio (10-20) Glucose (70-99) mg/dl POC Glucose 109 H 218 H (70-99) Troponin I (0-0.045) ng/ml Albumin (3.4-5.0) gm/dl Globulin (2.5-4.0) gm/dl Albumin/Globulin Ratio (0.9-2) Lipase (73-393) U/L Urine Protein (Negative) U Random Total Protein 13.8 H (0-11.9) mg/dl Protein/Creatinin Ratio 0.6 H (0-0.2) 10/01/18 Range/Units 17:20 RBC (4.2-5.4) M/uL Hgb (12.0-16.0) g/dL Hct (37-47) % RDW Std Deviation (36.4-46.3) fL BUN (7-18) mg/dl Creatinine (0.6-1.2) mg/dl BUN/Creatinine Ratio (10-20) Glucose (70-99) mg/dl POC Glucose (70-99) Troponin I 0.350 H* (0-0.045) ng/ml Albumin (3.4-5.0) gm/dl Globulin (2.5-4.0) gm/dl Albumin/Globulin Ratio (0.9-2) Lipase (73-393) U/L Urine Protein (Negative) U Random Total Protein (0-11.9) mg/dl Protein/Creatinin Ratio (0-0.2) Diagnostic Findings cxr > no acute CP process
[2018-10-01] MEDS: MYCOPHENOLATE MOFETIL 250 MG CAP PO SCH (21:28)
--- NOTE | 2018-10-01 21:36 | History & Physical Report ---
Date of Service October 01, 2018 History of Present Illness Primary Care Provider: Mecca Munoz MD Allergies Allergy/AdvReac Type Severity Reaction Status Date / Time adhesive Allergy Mild RED Verified 10/01/18 11:08 SKIN-BREAKS OUT Iodinated Contrast- Oral and AdvReac Unknown DOES NOT Verified 10/01/18 11:08 IV Dye RECEIVE D/T KIDNEY TRANSPLAST Home Medications Home Medications Medication Instructions Recorded Confirmed Type ascorbic acid (vitamin C) [Vitamin 500 mg PO HS 10/01/18 10/01/18 History C] aspirin 81 mg PO HS 10/01/18 10/01/18 History calcium carbonate [Tums] 600 mg PO TID PRN 10/01/18 10/01/18 History cyclosporine modified [Gengraf] 0 mg PO HS 10/01/18 10/01/18 History furosemide [Lasix] 20 mg PO DAILY PRN 10/01/18 10/01/18 History insulin aspart U-100 [Novolog 1 sliding scale dose SUBCUT UD 10/01/18 10/01/18 History U-100 Insulin aspart] insulin glargine [Lantus U-100 16 unit SUBCUT BID 10/01/18 10/01/18 History Insulin] levothyroxine 125 mcg PO QAM 10/01/18 10/01/18 History lisinopril 20 mg PO HS 10/01/18 10/01/18 History multivitamin 1 tab PO HS 10/01/18 10/01/18 History mycophenolate mofetil [CellCept] 500 mg PO HS 10/01/18 10/01/18 History nifedipine 60 mg PO HS 10/01/18 10/01/18 History omega 0-dnb-pfv-fish oil [Fish Oil] 1 cap PO HS 10/01/18 10/01/18 History Past Med/Surg History Medical History CKD (chronic kidney disease) (Chronic) HTN (hypertension) (Chronic) Hypothyroidism (Chronic) radioactive iodine treatments - 1980 Diabetes mellitus (Chronic) Anemia due to chronic kidney disease (Chronic) Diabetes mellitus type 1 (Chronic) Diagnosed at age 8 Diabetic retinopathy (Chronic) History of measles as a child (Resolved) History of mumps as a child (Resolved) Surgical History Renal transplant, status post (Chronic) "2000" H/O dilation and curettage (Chronic) History of tonsillectomy and adenoidectomy (Chronic) History of carpal tunnel surgery (Chronic) History of back surgery (Chronic) "x 2 " Living-donor kidney transplant recipient (Chronic) Social History Current Living Situation: Alone Other Information That Helps Us Care for You: No Feels Safe at Home: Yes Safety Concerns: Feels Safe At This Time Smoking Status: Never smoker Hx Alcohol Use: No Hx Substance Use: No Beliefs That Will Affect Care: None Preferred Language: Tajik Communication Ability: Effective Physical Exam 2 Vital Signs (Past 24 Hours): Last Vital Signs Temp 37.0 C 10/01/18 20:11 Pulse 87 10/01/18 20:11 Resp 18 10/01/18 20:11 BP 117/66 10/01/18 20:11 Pulse Ox 96 10/01/18 20:11 Results & Data Laboratory Results Laboratory Results WBC 5.95 K/uL (4.8-10.8) 10/01/18 10:30 RBC 3.54 M/uL (4.2-5.4) L 10/01/18 10:30 Hgb 10.6 g/dL (12.0-16.0) L 10/01/18 10:30 Hct 31.8 % (37-47) L 10/01/18 10:30 MCV 89.8 fL (80-100) 10/01/18 10:30 MCH 29.9 pg (25-34) 10/01/18 10:30 MCHC 33.3 g/dL (32-36) 10/01/18 10:30 RDW Std Deviation 46.8 fL (36.4-46.3) H 10/01/18 10:30 RDW Coeff of Taran 14.1 % (11.5-14.5) 10/01/18 10:30 Plt Count 258 K/uL (130-400) 10/01/18 10:30 MPV 9.3 fL (7.4-10.4) 10/01/18 10:30 Immature Gran % (Auto) 0.0 % 10/01/18 10:30 Neut % (Auto) 56.3 % 10/01/18 10:30 Lymph % (Auto) 34.8 % 10/01/18 10:30 [place] % (Auto) 7.4 % 10/01/18 10:30 Eos % (Auto) 1.3 % 10/01/18 10:30 Baso % (Auto) 0.2 % 10/01/18 10:30 Immature Gran # (Auto) 0.00 K/uL (0.00-0.02) 10/01/18 10:30 Neut # (Auto) 3.35 K/uL (1.4-6.5) 10/01/18 10:30 Lymph # (Auto) 2.07 K/uL (1.2-3.4) 10/01/18 10:30 [place] # (Auto) 0.44 K/uL (0.11-0.59) 10/01/18 10:30 Eos # (Auto) 0.08 K/uL (0-0.5) 10/01/18 10:30 Baso # (Auto) 0.01 K/uL (0-0.2) 10/01/18 10:30 PT 10.7 Seconds (9.0-12.0) 10/01/18 10:30 INR 1.1 (0.9-1.1) 10/01/18 10:30 Sodium 137 mmol/L (136-145) 10/01/18 10:30 Potassium 4.8 mmol/L (3.5-5.1) 10/01/18 10:30 Chloride 107 mmol/L (98-107) 10/01/18 10:30 Carbon Dioxide 22 mmol/L (21-32) 10/01/18 10:30 Anion Gap 8.0 (3-11) 10/01/18 10:30 BUN 42 mg/dl (7-18) H 10/01/18 10:30 Creatinine 1.59 mg/dl (0.6-1.2) H 10/01/18 10:30 Est Cr Clr Drug Dosing Not Reportable 10/01/18 10:30 Est GFR ( Amer) 40.2 10/01/18 10:30 Est GFR (Non-Af Amer) 34.7 10/01/18 10:30 BUN/Creatinine Ratio 26.4 (10-20) H 10/01/18 10:30 Glucose 239 mg/dl (70-99) H 10/01/18 10:30 POC Glucose 218 (70-99) H 10/01/18 16:43 Calcium 9.5 mg/dl (8.5-10.1) 10/01/18 10:30 Total Bilirubin 0.4 mg/dl (0.2-1) 10/01/18 10:30 AST 19 U/L (15-37) 10/01/18 10:30 ALT 28 U/L (12-78) 10/01/18 10:30 Alkaline Phosphatase 94 U/L (45-117) 10/01/18 10:30 Troponin I 0.350 ng/ml (0-0.045) H* 10/01/18 17:20 Total Protein 7.4 gm/dl (6.4-8.2) 10/01/18 10:30 Albumin 3.3 gm/dl (3.4-5.0) L 10/01/18 10:30 Globulin 4.1 gm/dl (2.5-4.0) H 10/01/18 10:30 Albumin/Globulin Ratio 0.8 (0.9-2) L 10/01/18 10:30 Lipase 69 U/L (73-393) L 10/01/18 10:30 TSH 0.554 uIu/ml (0.300-4.500) 10/01/18 10:30 Urine Color Yellow 10/01/18 13:55 Urine Appearance Clear (Clear) 10/01/18 13:55 Urine pH 5.5 (4.5-7.5) 10/01/18 13:55 Ur Specific Leonard <= 1.005 (1.000-1.030) 10/01/18 13:55 Urine Protein Negative (Negative) 10/01/18 13:55 Urine Glucose (UA) Negative (Negative) 10/01/18 13:55 Urine Ketones Negative (Negative) 10/01/18 13:55 Urine Blood Negative (Negative) 10/01/18 13:55 Urine Nitrite Negative (Negative) 10/01/18 13:55 Urine Bilirubin Negative (Negative) 10/01/18 13:55 Urine Urobilinogen Negative (Negative) 10/01/18 13:55 Ur Leukocyte Esterase Negative (Negative) 10/01/18 13:55 Urine WBC (Auto) 0 /hpf (0-5) 10/01/18 12:35 Urine RBC (Auto) 0-4 /hpf (0-4) 10/01/18 12:35 U Hyaline Cast (Auto) 0 /lpf (0-5) 10/01/18 12:35 U Epithel Cells (Auto) 0-5 /lpf (0-5) 10/01/18 12:35 Urine Bacteria (Auto) Negative (Negative) 10/01/18 12:35 Urine RBC 0-4 /hpf (0-4) 10/01/18 13:55 Urine WBC 0-5 /hpf (0-5) 10/01/18 13:55 Ur Epithelial Cells 0-5 /lpf (0-5) 10/01/18 13:55 Urine Bacteria Negative (Negative) 10/01/18 13:55 Hyaline Casts 0-5 /lpf (0-5) 10/01/18 13:55 Ur Random Creatinine 24.5 mg/dl 10/01/18 13:55 U Random Total Protein 13.8 mg/dl (0-11.9) H 10/01/18 13:55 Protein/Creatinin Ratio 0.6 (0-0.2) H 10/01/18 13:55 Code Status & VTE Plan VTE Prophylaxis Plan VTE Prophylaxis will be ordered: Yes
[2018-10-02] MEDS: INSULIN GLARGINE SOLOSTAR 100 UNITS/ML 3 ML PEN SQ SCH ×2 (02:49→21:03)
[2018-10-02] MEDS: LEVOTHYROXINE SODIUM 125 MCG TABLET PO SCH (05:32)
--- NOTE | 2018-10-02 06:28 | Nephrology Progress Note ---
Date of Service October 02, 2018 Assessment & Plan (1) Renal transplant, status post: large gap (about 13 mos) since her last labs > baseline 1.5 creatinine then and on presentation 1.6 and up to 1.75 today; chemistries acceptable; no evidence of volume overload on exam or imaging and no nephrosis -cont customary outpatient immunosuppression; not optimal and she may well have underlying chronic rejection by this point; however this far out from transplant would not change immunosuppression -renal u/s noted; ff may be c/w chronic rejection (2) CKD (chronic kidney disease), stage III: baseline creatinine 2017 was 1.5 w/ reported 2000 mg daily proteinuria; here creatinine 1.6 (on presentation) to 1.7 w/ 600 mg proteinuria. bp w/ adequate control; not volume overloaded; electrolytes remain acceptable. no concern for nephrotic syndrome. some anemia but acceptable range -daily bmp -cont current bp meds including ACEI -f/u cardiology recommendations -plan to keep upcoming [facility] clinic appt 10/13 w/ renal PA w/ plan to repeat labs at that time -from a renal standpoint she is appropriate for d/c home -d/c on <2 gm daily Na diet Subjective seen on rounds this am 0730; no sob at rest and states hasn't been up to see if happens w/ moving. less pain over allograft. not sure about edema changes and no chest pain. no rash. no voiding concerns/complaints. N improved; no v/d. still anxious. no focal numbness/weakness. getting TTE this am. no sore throat/vision change Physical Exam 2 Vital Signs (Past 24 Hours): Last Vital Signs Temp 36.9 C 10/02/18 03:14 Pulse 77 10/02/18 03:14 Resp 20 10/02/18 03:14 BP 130/69 10/02/18 03:14 Pulse Ox 96 10/02/18 03:14 Constitutional: well developed, well nourished and average body habitus lying w/ HOB at 45 degrees on RA, maneuvers easily for exam Eyes: EOM intact bilaterally ENMT: Ears: no external ear abnormality Nose: no external nose abnormality Mouth: + dry oral mucous membranes Neck: no nuchal rigidity Respiratory: normal respiratory effort Auscultation: + diminished lung sounds Cardiovascular: RRR, no murmur, no edema Gastrointestinal (Abdomen): Inspection/Auscultation: normal bowel sounds Percussion/Palpation: abdomen soft; abdomen nontender (no / less allograft TTP) and no guarding Musculoskeletal: Extremities: strength 5/5 throughout Skin: no rashes, warm and dry + lesion (1/2 dollar size R aleman; does not look infected) Psychiatric: Orientation: alert and oriented x 3 Apperance: appropriately groomed Speech: normal rate/rhythm/volume of speech Affect: + anxious affect Mood: + anxious mood Thought Process: goal directed thought process and + tangential thought process Genitourinary: no nassar Results & Data Laboratory Results Abnormal lab results 10/01/18 10/01/18 10/01/18 Range/Units 10:30 12:35 13:55 RBC (4.2-5.4) M/uL Hgb (12.0-16.0) g/dL Hct (37-47) % RDW Std Deviation (36.4-46.3) fL Chloride (98-107) mmol/L BUN 42 H (7-18) mg/dl Creatinine 1.59 H (0.6-1.2) mg/dl BUN/Creatinine Ratio 26.4 H (10-20) Glucose 239 H (70-99) mg/dl POC Glucose (70-99) Hemoglobin A1c (4.5-5.6) % Troponin I 0.270 H* (0-0.045) ng/ml Albumin 3.3 L (3.4-5.0) gm/dl Globulin 4.1 H (2.5-4.0) gm/dl Albumin/Globulin Ratio 0.8 L (0.9-2) Lipase 69 L (73-393) U/L 25-OH Vitamin D Total (30-100) ng/ml Urine Protein Trace H (Negative) U Random Total Protein 13.8 H (0-11.9) mg/dl Protein/Creatinin Ratio 0.6 H (0-0.2) 10/01/18 10/01/18 10/01/18 Range/Units 13:59 16:43 17:20 RBC (4.2-5.4) M/uL Hgb (12.0-16.0) g/dL Hct (37-47) % RDW Std Deviation (36.4-46.3) fL Chloride (98-107) mmol/L BUN (7-18) mg/dl Creatinine (0.6-1.2) mg/dl BUN/Creatinine Ratio (10-20) Glucose (70-99) mg/dl POC Glucose 109 H 218 H (70-99) Hemoglobin A1c (4.5-5.6) % Troponin I 0.350 H* (0-0.045) ng/ml Albumin (3.4-5.0) gm/dl Globulin (2.5-4.0) gm/dl Albumin/Globulin Ratio (0.9-2) Lipase (73-393) U/L 25-OH Vitamin D Total (30-100) ng/ml Urine Protein (Negative) U Random Total Protein (0-11.9) mg/dl Protein/Creatinin Ratio (0-0.2) 10/01/18 10/01/18 10/01/18 Range/Units 20:43 20:44 21:07 RBC (4.2-5.4) M/uL Hgb (12.0-16.0) g/dL Hct (37-47) % RDW Std Deviation (36.4-46.3) fL Chloride (98-107) mmol/L BUN (7-18) mg/dl Creatinine (0.6-1.2) mg/dl BUN/Creatinine Ratio (10-20) Glucose (70-99) mg/dl POC Glucose 37 L* 34 L* 41 L* (70-99) Hemoglobin A1c (4.5-5.6) % Troponin I (0-0.045) ng/ml Albumin (3.4-5.0) gm/dl Globulin (2.5-4.0) gm/dl Albumin/Globulin Ratio (0.9-2) Lipase (73-393) U/L 25-OH Vitamin D Total (30-100) ng/ml Urine Protein (Negative) U Random Total Protein (0-11.9) mg/dl Protein/Creatinin Ratio (0-0.2) 10/01/18 10/02/18 10/02/18 Range/Units 22:25 00:29 02:11 RBC (4.2-5.4) M/uL Hgb (12.0-16.0) g/dL Hct (37-47) % RDW Std Deviation (36.4-46.3) fL Chloride (98-107) mmol/L BUN (7-18) mg/dl Creatinine (0.6-1.2) mg/dl BUN/Creatinine Ratio (10-20) Glucose (70-99) mg/dl POC Glucose 301 H 354 H* (70-99) Hemoglobin A1c (4.5-5.6) % Troponin I 0.299 H* (0-0.045) ng/ml Albumin (3.4-5.0) gm/dl Globulin (2.5-4.0) gm/dl Albumin/Globulin Ratio (0.9-2) Lipase (73-393) U/L 25-OH Vitamin D Total (30-100) ng/ml Urine Protein (Negative) U Random Total Protein (0-11.9) mg/dl Protein/Creatinin Ratio (0-0.2) 10/02/18 10/02/18 10/02/18 Range/Units 06:24 06:24 06:24 RBC 3.38 L (4.2-5.4) M/uL Hgb 10.1 L (12.0-16.0) g/dL Hct 30.4 L (37-47) % RDW Std Deviation 46.9 H (36.4-46.3) fL Chloride 112 H (98-107) mmol/L BUN 44 H (7-18) mg/dl Creatinine 1.75 H (0.6-1.2) mg/dl BUN/Creatinine Ratio 24.9 H (10-20) Glucose 121 H (70-99) mg/dl POC Glucose (70-99) Hemoglobin A1c (4.5-5.6) % Troponin I (0-0.045) ng/ml Albumin (3.4-5.0) gm/dl Globulin (2.5-4.0) gm/dl Albumin/Globulin Ratio (0.9-2) Lipase (73-393) U/L 25-OH Vitamin D Total 18.7 L (30-100) ng/ml Urine Protein (Negative) U Random Total Protein (0-11.9) mg/dl Protein/Creatinin Ratio (0-0.2) 10/02/18 Range/Units 06:24 RBC (4.2-5.4) M/uL Hgb (12.0-16.0) g/dL Hct (37-47) % RDW Std Deviation (36.4-46.3) fL Chloride (98-107) mmol/L BUN (7-18) mg/dl Creatinine (0.6-1.2) mg/dl BUN/Creatinine Ratio (10-20) Glucose (70-99) mg/dl POC Glucose (70-99) Hemoglobin A1c 8.7 H (4.5-5.6) % Troponin I (0-0.045) ng/ml Albumin (3.4-5.0) gm/dl Globulin (2.5-4.0) gm/dl Albumin/Globulin Ratio (0.9-2) Lipase (73-393) U/L 25-OH Vitamin D Total (30-100) ng/ml Urine Protein (Negative) U Random Total Protein (0-11.9) mg/dl Protein/Creatinin Ratio (0-0.2) Diagnostic Findings txplt u/s 1. Patent transplant artery and vein. No significant hydronephrosis. No perigraft fluid collection. 2. Mildly elevated resistive indices within the segmental vessels of the allograft, a nonspecific finding which could be correlated with previous transplant ultrasounds if available. This can be seen in setting of chronic transplant rejection or acute tubular necrosis among other etiologies. cxr FINDINGS: Anterior cervical spine fusion is incidentally noted. There is no pneumothorax or pleural effusion. Linear left lower lung opacity favors atelectasis. There is mild cardiomegaly. There is no consolidation to suggest pneumonia. There is no evidence for pulmonary edema. Lumbar spine fusion hardware is partially imaged. IMPRESSION: No acute cardiopulmonary findings.
[2018-10-02 06:36] LABS: Basophils # (auto) 0.02 K/uL (0-0.2); Basophils % (auto) 0.3 %; Eosinophils # (auto) 0.14 K/uL (0-0.5); Eosinophils % (auto) 2.2 %; Hematocrit (blood only) 30.4 % (37-47); Hemoglobin 10.1 g/dL (12.0-16.0); Immature Granulocytes # (auto) 0.01 K/uL (0.00-0.02); Immature Granulocytes % (auto) 0.2 %; Lymphocytes # (auto) 2.89 K/uL (1.2-3.4); Lymphocytes % (auto) 44.6 %; Mean Corpuscular Hgb Conc 33.2 g/dL (32-36); Mean Corpuscular Volume 89.9 fL (80-100); Mean Platelet Volume 9.2 fL (7.4-10.4); Monocytes # (auto) 0.35 K/uL (0.11-0.59); Monocytes % (auto) 5.4 %; Neutrophils # (auto) 3.07 K/uL (1.4-6.5); Neutrophils % (auto) 47.3 %; Platelet Count 237 K/uL (130-400); RDW Coefficient of Variation 14.3 % (11.5-14.5); RDW Standard Deviation 46.9 fL (36.4-46.3); Red Blood Count 3.38 M/uL (4.2-5.4); White Blood Count 6.48 K/uL (4.8-10.8)
--- NOTE | 2018-10-02 06:37 | Ultrasound Report ---
RENAL TRANSPLANT ULTRASOUND CLINICAL HISTORY: focal tenderness over allograft LLQ. COMPARISON STUDY: No previous studies for comparison. TECHNIQUE: Grayscale and color and duplex Doppler sonography of the left lower quadrant renal allogra ft was performed. FINDINGS: The allograft measures 10.4 x 5.2 x 4.2 cm. There is no significant graft hydronephrosis. T he graft is slightly lobulated with mild cortical thinning. No fluid collection is present. No renal mass or calculus is present. The renal transplant artery and vein are patent. No elevated velocities are identified to suggest a stenosis. Resistive indices within the segmental vessels range from 0.71- 0.85. Bladder is unremarkable. Both viejas kidneys were atrophic and difficult to visualize. IMPRESSION: 1. Patent transplant artery and vein. No significant hydronephrosis. No perigraft fluid collection. 2. Mildly elevated resistive indices within the segmental vessels of the allograft, a nonspecific fin ding which could be correlated with previous transplant ultrasounds if available. This can be seen in setting of chronic transplant rejection or acute tubular necrosis among other etiologies. Electronically signed by: Juwan Terry M.D. 10/02/2018 6:35 AM
[2018-10-02 07:10] LABS: BUN Creatinine Ratio 24.9 (10-20); Calcium 9.2 mg/dl (8.5-10.1); Creatinine Clr Calc Pharmacy 35.6 ml/min; Est GFR (African American) 35.8; Est GFR (Non-African American) 30.9; Magnesium 1.9 mg/dl (1.8-2.4); Potassium 4.6 mmol/L (3.5-5.1)
[2018-10-02 08:22] LABS: Estimated Average Glucose 203 mg/dl
[2018-10-02] MEDS: INSULIN ASPART 100 UNITS/ML 3 ML PEN SC SCH ×4 (08:50→20:57)
[2018-10-02] MEDS: HEPARIN SOD 5,000 UNIT/0.5 ML VIAL SQ SCH ×2 (08:52→21:02)
[2018-10-02] MEDS ORDERED: CALCIUM CARBONATE 500 MG CHEWABLE TAB PO PRN (12:30)
--- NOTE | 2018-10-02 12:41 | Hospitalist Progress Note ---
Date of Service October 02, 2018 Assessment & Plan (1) Abdominal pain: Renal us looks fine, Nephro has evaluated. Uncertain exact cause of pain , however chronic rejection is a possibility. Patient can continue further evaluation and workup per primary care doctor at this point. She does have a nephrology follow-up later this month that she will need to keep. At this point she is not requiring medications and can be discharged after stress test as long as this is negative. (2) Elevated troponin: Stress test ordered for this afternoon. If negative patient can be discharged. (3) HTN (hypertension): At goal, continue antihypertensives per home regimen. (4) CKD (chronic kidney disease), stage III: At baseline. Nephrology has cleared her for discharge. Continue to monitor. (5) Renal transplant, status post: This patient has not gotten any lab work in the last year and is not taking her immunosuppressive therapy as prescribed. For this reason, chronic rejection is a possibility, possibly causing her recent symptoms. Continue follow-up with nephrology as outpatient. (6) Type I diabetes mellitus: Transition into the hospital because her typical schedule for insulin administration to be off from what she normally does. Sugars were low yesterday and rebounded up into the 300s after sugar and a snack. They are normalized and at goal this morning. (7) DVT prophylaxis: Heparin Full code Disposition-DC to home pending results of stress test this afternoon. Claudia Rico DO [facility] Hospitalist Subjective 63-year-old female status post renal transplant over 10 years ago who has not been compliant with lab work or antirejection meds presents with nonspecific right lower quadrant abdominal pain in this area of her working kidney. She reports 2 weeks of minor leg swelling and shortness of breath going upstairs and she felt this internal achy pain for 2 weeks. She thought things were getting worse yesterday and decided to come to the ER. Physical Exam 2 Vital Signs (Past 24 Hours): Last Vital Signs Temp 37.0 C 10/02/18 11:07 Pulse 78 10/02/18 11:07 Resp 20 10/02/18 11:07 BP 121/69 10/02/18 11:07 Pulse Ox 96 10/02/18 11:07 CONSTITUTIONAL: WNWD, vitals as above, generally well-appearing EYES: normal conjuctivae, no scleral icterus ENT: MMM NECK: trachea midline, no lymphadenopathy RESPIRATORY: clear to auscultation bilaterally, no crackles, rales or wheezes, normal respiratory effort CARDIOVASCULAR: regular rate and rhythm, S1 and 2 heard without murmurs, gallops or rubs, no JVD, no peripheral edema GASTROINTESTINAL: soft, nontender, nondistended MUSCULOSKELETAL: strength 5/5 throughout, head is normocephalic and atraumatic SKIN: warm and dry NEUROLOGIC: CN 2-12 grossly intact PSYCHIATRIC: alert cooperative and oriented to person, place and time. Results & Data Laboratory Results Short CBC 10/02/18 Range/Units 06:24 WBC 6.48 (4.8-10.8) K/uL Hgb 10.1 L (12.0-16.0) g/dL Hct 30.4 L (37-47) % Plt Count 237 (130-400) K/uL BMP 10/02/18 06:24 Sodium 137 Potassium 4.6 Chloride 112 H Carbon Dioxide 21 BUN 44 H Creatinine 1.75 H Glucose 121 H Calcium 9.2 Cardiac Enzymes 10/01/18 10/01/18 Range/Units 17:20 22:25 Troponin I 0.350 H* 0.299 H* (0-0.045) ng/ml Urine 10/01/18 Range/Units 13:55 Urine Color Yellow Urine Appearance Clear (Clear) Urine pH 5.5 (4.5-7.5) Ur Specific [place] <= 1.005 (1.000-1.030) Urine Protein Negative (Negative) Urine Glucose (UA) Negative (Negative) Medications Administered Current Inpatient Medications Ascorbic Acid (Vitamin C) 500 mg PO HS IRA Stop: 10/31/18 20:59 Last Admin: 10/01/18 20:40 Dose: 500 mg Calcium Carbonate (Tums) 1,000 mg PO Q6H PRN PRN Reason: Indigestion Stop: 11/01/18 12:29 Cyclosporine (Neoral) 25 mg PO HS IRA Stop: 10/31/18 20:59 Last Admin: 10/01/18 20:41 Dose: 25 mg Dextrose (Dextrose 50%) 25 - 50 ml IV UD PRN; Protocol PRN Reason: Hypoglycemia Protocol Stop: 10/31/18 14:23 Glucagon (Glucagen) 1 mg SQ UD PRN; Protocol PRN Reason: Hypoglycemia Protocol Stop: 10/31/18 14:23 Glucose (Glucose 40%) 15 - 30 gm PO UD PRN; Protocol PRN Reason: Hypoglycemia Protocol Stop: 10/31/18 14:23 Glucose (Dex4 Glucose) 4 - 8 tabs PO UD PRN; Protocol PRN Reason: Hypoglycemia Protocol Stop: 10/31/18 14:23 Last Admin: 10/01/18 20:52 Dose: 8 tabs Heparin Sodium (Porcine) (Heparin Sodium (Porcine)) 5,000 units SQ Q12 IRA Stop: 10/31/18 20:59 Last Admin: 10/02/18 08:52 Dose: 5,000 units Insulin Aspart (Novolog Flexpen) 0 units SC ACHS IRA Stop: 11/01/18 07:29 Last Admin: 10/02/18 12:32 Dose: Not Given Insulin Glargine (Lantus Solostar Pen) 10 units SQ BID IRA Stop: 11/01/18 02:29 Last Admin: 10/02/18 02:49 Dose: 10 units Levothyroxine Sodium (Synthroid) 125 mcg PO DAILYBB IRA Stop: 11/01/18 06:29 Last Admin: 10/02/18 05:32 Dose: 125 mcg Lisinopril (Zestril) 20 mg PO HS [facility] Stop: 10/31/18 20:59 Last Admin: 10/01/18 20:41 Dose: 20 mg Miscellaneous (Carbohydrates For Hypoglycemia) 15 - 30 gm PO UD PRN PRN Reason: Hypoglycemia Treatment Stop: 10/31/18 14:23 Last Admin: 10/01/18 21:16 Dose: 30 gm Mycophenolate Mofetil (Cellcept) 500 mg PO HS [facility] Stop: 10/31/18 20:59 Last Admin: 10/01/18 21:28 Dose: 500 mg Nifedipine (Procardia Xl) 60 mg PO HS [facility] Stop: 10/31/18 20:59 Last Admin: 10/01/18 20:40 Dose: 60 mg ECG Additional Comments: EKG reveals sinus rhythm 79 with a left anterior fascicular block. Telemetry review reveals sinus rhythm in the 80s-90s overnight.
[2018-10-02] MEDS ORDERED: METOPROLOL TARTRATE 1 MG/ML VIAL IV ONE (14:16)
[2018-10-02] MEDS ORDERED: ATROPINE SULFATE 0.1 MG/ML 10ML SYR IV ONE (14:16)
[2018-10-02] MEDS ORDERED: DOBUTamine HCL 12.5 MG/ML 20 ML VIAL IV ONE (14:16)
[2018-10-02] MEDS ORDERED: ONDANSETRON INJ 2 MG/ML 2 ML VIAL ONE (14:43)
--- NOTE | 2018-10-02 17:10 | Cardiology Progress Note ---
Date of Service October 02, 2018 Assessment & Plan (1) Elevated troponin: Patient presented to the emergency room today for evaluation of left lower abdominal pain and flank pain, concern for possible kidney issues was noted to have an incidental troponin elevation on laboratory screening. EKGs demonstrate no acute evolution patient is aware of increasing recent peripheral edema. Denies any history of past angina or past coronary artery disease with no multiple risk factors are present. Recommendations with continue to follow serial troponins. Troponins flat with no evidence of evolution to suggest acute injury. No change in EKGs. Echocardiogram today demonstrates normal to hyperdynamic LV function without wall motion abnormality. As noted above with patient to present for dobutamine stress testing anxiety of procedure resulted in heart rates greater than target without evidence of ischemia by EKG or echocardiographic criteria Would recommend adding beta-steven to her regimen 8 heart rate controlled likely aid in exercise tolerance (2) Edema, peripheral: (3) CKD (chronic kidney disease), stage III: (4) Renal transplant, status post: Physical Exam 2 Vital Signs (Past 24 Hours): Last Vital Signs Temp 37.1 C 10/02/18 14:40 Pulse 82 10/02/18 14:40 Resp 16 10/02/18 14:40 BP 120/65 10/02/18 14:40 Pulse Ox 95 10/02/18 14:40 Constitutional: WD/WN, vitals as above ENMT: external ear and nose normal, oropharynx normal Neck: trachea midline, no thyromegaly Respiratory: normal respiratory effort, lungs clear to auscultation Cardiovascular: Vessels: no carotid bruit Extremities: no edema Musculoskeletal: no cyanosis or clubbing, extremities motor strength 5/5 Results & Data Laboratory Results Laboratory Results - last 24 hr 10/01/18 10/01/18 10/01/18 13:55 16:43 17:20 WBC RBC Hgb Hct MCV MCH MCHC RDW Std Deviation RDW Coeff of Taran Plt Count MPV Immature Gran % (Auto) Neut % (Auto) Lymph % (Auto) [place] % (Auto) Eos % (Auto) Baso % (Auto) Immature Gran # (Auto) Neut # (Auto) Lymph # (Auto) [place] # (Auto) Eos # (Auto) Baso # (Auto) Sodium Potassium Chloride Carbon Dioxide Anion Gap BUN Creatinine Est Cr Clr Drug Dosing Est GFR ( Amer) Est GFR (Non-Af Amer) BUN/Creatinine Ratio Glucose POC Glucose 218 H Estimat Average Glucose Hemoglobin A1c Calcium Magnesium Troponin I 0.350 H* 25-OH Vitamin D Total PTH Intact Hyaline Casts 0-5 10/01/18 10/01/18 10/01/18 20:43 20:44 21:07 WBC RBC Hgb Hct MCV MCH MCHC RDW Std Deviation RDW Coeff of Atran Plt Count MPV Immature Gran % (Auto) Neut % (Auto) Lymph % (Auto) [place] % (Auto) Eos % (Auto) Baso % (Auto) Immature Gran # (Auto) Neut # (Auto) Lymph # (Auto) [place] # (Auto) Eos # (Auto) Baso # (Auto) Sodium Potassium Chloride Carbon Dioxide Anion Gap BUN Creatinine Est Cr Clr Drug Dosing Est GFR ( Amer) Est GFR (Non-Af Amer) BUN/Creatinine Ratio Glucose POC Glucose 37 L* 34 L* 41 L* Estimat Average Glucose Hemoglobin A1c Calcium Magnesium Troponin I 25-OH Vitamin D Total PTH Intact Hyaline Casts 10/01/18 10/01/18 10/02/18 21:32 22:25 00:29 WBC RBC Hgb Hct MCV MCH MCHC RDW Std Deviation RDW Coeff of Taran Plt Count MPV Immature Gran % (Auto) Neut % (Auto) Lymph % (Auto) [place] % (Auto) Eos % (Auto) Baso % (Auto) Immature Gran # (Auto) Neut # (Auto) Lymph # (Auto) [place] # (Auto) Eos # (Auto) Baso # (Auto) Sodium Potassium Chloride Carbon Dioxide Anion Gap BUN Creatinine Est Cr Clr Drug Dosing Est GFR ( Amer) Est GFR (Non-Af Amer) BUN/Creatinine Ratio Glucose POC Glucose 73 301 H Estimat Average Glucose Hemoglobin A1c Calcium Magnesium Troponin I 0.299 H* 25-OH Vitamin D Total PTH Intact Hyaline Casts 10/02/18 10/02/18 10/02/18 02:11 06:24 06:24 WBC 6.48 RBC 3.38 L Hgb 10.1 L Hct 30.4 L MCV 89.9 MCH 29.9 MCHC 33.2 RDW Std Deviation 46.9 H RDW Coeff of Taran 14.3 Plt Count 237 MPV 9.2 Immature Gran % (Auto) 0.2 Neut % (Auto) 47.3 Lymph % (Auto) 44.6 [place] % (Auto) 5.4 Eos % (Auto) 2.2 Baso % (Auto) 0.3 Immature Gran # (Auto) 0.01 Neut # (Auto) 3.07 Lymph # (Auto) 2.89 [place] # (Auto) 0.35 Eos # (Auto) 0.14 Baso # (Auto) 0.02 Sodium 137 Potassium 4.6 Chloride 112 H Carbon Dioxide 21 Anion Gap 4.0 BUN 44 H Creatinine 1.75 H Est Cr Clr Drug Dosing 35.6 Est GFR ( Amer) 35.8 Est GFR (Non-Af Amer) 30.9 BUN/Creatinine Ratio 24.9 H Glucose 121 H POC Glucose 354 H* Estimat Average Glucose Hemoglobin A1c Calcium 9.2 Magnesium 1.9 Troponin I 25-OH Vitamin D Total PTH Intact Hyaline Casts 10/02/18 10/02/18 10/02/18 06:24 06:24 06:24 WBC RBC Hgb Hct MCV MCH MCHC RDW Std Deviation RDW Coeff of Taran Plt Count MPV Immature Gran % (Auto) Neut % (Auto) Lymph % (Auto) [place] % (Auto) Eos % (Auto) Baso % (Auto) Immature Gran # (Auto) Neut # (Auto) Lymph # (Auto) [place] # (Auto) Eos # (Auto) Baso # (Auto) Sodium Potassium Chloride Carbon Dioxide Anion Gap BUN Creatinine Est Cr Clr Drug Dosing Est GFR ( Amer) Est GFR (Non-Af Amer) BUN/Creatinine Ratio Glucose POC Glucose Estimat Average Glucose 203 Hemoglobin A1c 8.7 H Calcium Magnesium Troponin I 25-OH Vitamin D Total 18.7 L PTH Intact 45.4 Hyaline Casts 10/02/18 10/02/18 10/02/18 07:27 11:17 16:19 WBC RBC Hgb Hct MCV MCH MCHC RDW Std Deviation RDW Coeff of Taran Plt Count MPV Immature Gran % (Auto) Neut % (Auto) Lymph % (Auto) [place] % (Auto) Eos % (Auto) Baso % (Auto) Immature Gran # (Auto) Neut # (Auto) Lymph # (Auto) [place] # (Auto) Eos # (Auto) Baso # (Auto) Sodium Potassium Chloride Carbon Dioxide Anion Gap BUN Creatinine Est Cr Clr Drug Dosing Est GFR ( Amer) Est GFR (Non-Af Amer) BUN/Creatinine Ratio Glucose POC Glucose 98 126 H 306 H Estimat Average Glucose Hemoglobin A1c Calcium Magnesium Troponin I 25-OH Vitamin D Total PTH Intact Hyaline Casts Diagnostic Findings Echocardiogram 10/02/2018: Moderate left hypertrophy with normal to hyperdynamic LV function no wall motion abnormalities Patient presented for planned stress echocardiography however with associated anxiety the procedure was able to elevate heart rate to target heart rate of greater than 140 bpm without any medication administration echocardiogram demonstrated hyperdynamic LV function and no wall motion normality's or EKG changes to suggest ischemia. Patient did respond nicely to IV beta-steven with return to heart rate control
[2018-10-02] MEDS: MYCOPHENOLATE MOFETIL 250 MG CAP PO SCH (21:01)
[2018-10-02] MEDS: ASCORBIC ACID 500 MG TAB PO SCH (21:01)
[2018-10-02] MEDS: METOPROLOL SUCC 25MG EXT REL TAB PO SCH (21:01)
[2018-10-02] MEDS: NIFEdipine EXTENDED REL 30 MG TABCR PO SCH (21:01)
[2018-10-02] MEDS: cycloSPORINE 25 MG CAP PO SCH (21:01)
[2018-10-02] MEDS: LISINOPRIL 20 MG TAB PO SCH (21:02)
[2018-10-03] MEDS: LEVOTHYROXINE SODIUM 125 MCG TABLET PO SCH (05:28)
[2018-10-03] MEDS: METOPROLOL SUCC 25MG EXT REL TAB PO SCH (08:00)
[2018-10-03] MEDS: HEPARIN SOD 5,000 UNIT/0.5 ML VIAL SQ SCH (08:01)
[2018-10-03] MEDS: INSULIN GLARGINE SOLOSTAR 100 UNITS/ML 3 ML PEN SQ SCH (08:05)
[2018-10-03] MEDS: INSULIN ASPART 100 UNITS/ML 3 ML PEN SC SCH ×2 (08:05→12:27)
--- NOTE | 2018-10-08 14:40 | Discharge Summary ---
Date of Service October 08, 2018 Admission HPI Per Admitting Provider 63 y/p female with a history of type 1 DM, s/p living donor renal transplant in 2000, presents to the ED today with progressive PINO, peripheral edema and nausea. Found to have a mildly elevated troponin in the ED at 0.27 as well as a slight bump in her creatinine so referred for admission for further evaluation of these complaints. Pt reports being in her usual state of health until approximately two weeks ago when she noted the gradual onset of being "winded more easily than usual" - she gives the example of shopping at [employer] last night and being short of breath by the time she got her groceries to the vehicle. She report this dyspnea resolves with a few minutes of rest. Denies SOB at rest. She also notes new LE edema for two weeks - worse with being on her feet all day but never resolves completely although improves with elevation. No calf pain. Does have chronic neuropathy that she rates as mild in her bilateral feet. Lastly, she notes some nausea and decreased appetite but no vomiting or change in bowel pattern. Urine output is unchanged from baseline - denies urinary frequency, urgency, dysuria, hematuria. Chronic nocturia x 1 episode per night is unchanged. Pt was previously followed by Dr. Brock with last visit in March 2017 - has been on CellCept 500 mg daily and Gengraf 100 mg daily. She was supposed to be taking twice a day but has chosen to take once a day for years instead. At last visit with nephrology, she was noted to have close to 2 grams of proteinuria when quantified so some concern for element of rejection was raised but it appears pt has been lost to follow- up. She reports her last visit with her PCP was a year ago. She does follow with endocrinology - was supposed to get her insulin pump today. Admission Exam Per Admitting Provider WD/WN, vitals as above Eyes: PERRL, conjunctivae normal, anicteric sclerae EOM intact bilaterally ENMT: external ear and nose normal, oropharynx normal Neck: trachea midline Respiratory: normal respiratory effort, lungs clear to auscultation no respiratory distress and no labored breathing Auscultation: no rales, no rhonchi and no wheezes Cardiovascular: Rate/Rhythm: regular rate and regular rhythm Heart Sounds: no click, no gallop and no murmur Vessels: no JVD and no carotid bruit Extremities: normal capillary refill and + edema (1+ bilateral LE edema to pretibial area with associated tenderness); no calf tenderness Gastrointestinal (Abdomen): Inspection/Auscultation: normal bowel sounds Percussion/Palpation: abdomen soft; abdomen nontender, no guarding and abdomen not rigid Negative for CVA tenderness bilaterally Musculoskeletal: no cyanosis or clubbing, extremities motor strength 5/5 Skin: no rashes, warm and dry Psychiatric: A+Ox3, euthymic affect Principal Diagnosis abdominal pain-resolved Discharge Exam CONSTITUTIONAL: WNWD, vitals as above, generally well-appearing EYES: normal conjuctivae, no scleral icterus ENT: MMM NECK: trachea midline, no lymphadenopathy RESPIRATORY: clear to auscultation bilaterally, no crackles, rales or wheezes, normal respiratory effort CARDIOVASCULAR: regular rate and rhythm, S1 and 2 heard without murmurs, gallops or rubs, no JVD, no peripheral edema GASTROINTESTINAL: soft, nontender, nondistended MUSCULOSKELETAL: strength 5/5 throughout, head is normocephalic and atraumatic SKIN: warm and dry NEUROLOGIC: CN 2-12 grossly intact PSYCHIATRIC: alert cooperative and oriented to person, place and time. Discharge Data Allergies Allergy/AdvReac Type Severity Reaction Status Date / Time adhesive Allergy Mild RED Verified 10/01/18 11:08 SKIN-BREAKS OUT Iodinated Contrast- Oral and AdvReac Unknown DOES NOT Verified 10/01/18 11:08 IV Dye RECEIVE D/T KIDNEY TRANSPLAST Consultations 10/01/18 11:52 ED Decision to Admit Stat 10/01/18 13:33 Consult Cardiology Routine Consult Nephrology Routine Ordered Studies 10/01/18 21:51 renal transplant w dop Routine Hospital Course (1) Abdominal pain: (2) Elevated troponin: (3) HTN (hypertension): (4) CKD (chronic kidney disease), stage III: (5) Renal transplant, status post: (6) Type I diabetes mellitus: 63-year-old kidney transplant patient presented with leg swelling and nausea as well as abdominal pain. Her pain is been present for 1 day. She had a history of CKD and underwent a left-sided kidney transplant in 2000. She denies any fevers or chills and reported no hematuria or dysuria. On arrival to the ER she was hemodynamically stable and afebrile oxygenating well on room air. Physical exam revealed a soft abdomen with no tenderness to palpation in the left lower abdomen where the transplanted kidney resided. Lab work revealed mild anemia with an H&H of 10.6/31.8. BMP was normal except for BUN 42 and creatinine 1.59. Glucose was elevated at 239. The patient was notably a type I diabetic and was off cycle from her typical insulin and administration. Chest x-ray revealed no acute cardiopulmonary findings. EKG revealed sinus rhythm with a rate of 85 and no acute ischemic changes. Of note her edema had been going on for quite some time but she had not gotten this checked out reportedly. Her troponin was mildly elevated 0.27 and she had have been been having intermittent shortness of breath. She was admitted to the hospitalist service for rule out ACS and to workup her symptoms more. Cardiology and nephrology were consulted. The patient had been notably on 50% of her antirejection meds. Serial troponins were flat with no evidence of evolution to suggest acute injury. There was no change in EKGs. Echocardiogram did not demonstrated normal to hyperdynamic LV function without wall motion abnormalities. She underwent a debridement stress test, with some anxiety preprocedure. Her anxiety resulted in heart rates greater than the target without evidence of ischemia by EKG or echocardiographic criteria. She was given a beta-steven to add to her regimen, which would hopefully aid in exercise tolerance. Per nephrology there was no evidence of volume overload on exam or imaging and no evidence of necrosis. 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 After evaluation she was deemed stable for discharge and was recommended to have close follow-up with nephrology and primary care. At time of discharge her abdominal pain had resolved. Total Time Total Time Spent Total Time Spent (In Minutes): 60 Total Time Includes: Examination of the Patient, Discharge Planning, Medication Reconciliation and Communication With Other Providers Discharge Plan Discharge Items Patient Disposition: Home - Self-Care Reason For Visit: PAIN IN KIDNEY S/P TRANSPLANT,LEG SWELLING,NAUSEA Discharge Diagnosis: abdominal pain-resolved Discharge Goals: Improve disease control Activity: Resume your previous activity Non-emergency contact: Primary Care Provider and [employer] Field Service Technician Call non-emergency contact if: you have any medication questions, your symptoms worsen, your pain is not controlled and you have a fever Follow-up/Referrals: Mecca Munoz MD [Primary Care Provider] - Diet: Carb Count or DM1 and Low Sodium (2gm) Addtl Provider Instructions: Please take all medications as prescribed below on discharge list. It is recommended that you follow-up with your primary care doctor within 1 week of discharge. You had the following appointments: NEPHROLOGY 10/13/2018 10:30 AM Provider Sosa Hollis PA-C Department Nephrology [facility] ENDOCRINOLOGY 11/23/2018 3:00 PM Provider [facility] taking care of you! Please call if you have any questions or problems. You can reach a [facility] hospitalist on duty at [facility] 24 hours a day by calling [phone]. Take care of yourself. Claudia Rico, DO [facility] Hospitalist Prescriptions: New metoprolol succinate 25 mg Tablet Extended Release 24 Hr 12.5 mg PO BID 30 Days Qty: 30 RF: 1 Continue multivitamin Tablet 1 tab PO HS RF: 0 insulin glargine [Lantus U-100 Insulin] 100 unit/mL Solution 16 unit SUBCUT BID RF: 0 cyclosporine modified [Gengraf] 25 mg Capsule PO HS RF: 0 lisinopril 20 mg Tablet 20 mg PO HS RF: 0 aspirin 81 mg Tablet,Delayed Release (Dr/Ec) 81 mg PO HS RF: 0 mycophenolate mofetil [CellCept] 500 mg Tablet 500 mg PO HS RF: 0 ascorbic acid (vitamin C) [Vitamin C] 500 mg Tablet 500 mg PO HS RF: 0 insulin aspart U-100 [Novolog U-100 Insulin aspart] 100 unit/mL Solution 1 sliding scale dose SUBCUT UD RF: 0 levothyroxine 125 mcg Tablet 125 mcg PO QAM RF: 0 calcium carbonate [Tums] 200 mg calcium (500 mg) Tablet,Chewable 600 mg PO TID PRN (Reason: Indigestion) RF: 0 furosemide [Lasix] 20 mg Tablet 20 mg PO DAILY PRN (Reason: Fluid Retention) RF: 0 nifedipine 60 mg Tablet Extended Release 60 mg PO HS RF: 0 omega 4-tax-zxh-fish oil [Fish Oil] 1,000 mg (120 mg-180 mg) Capsule 1 cap PO HS RF: 0 Stand-Alone Forms: [facility] Discharge Orders: Discharge Order (Routine); Ordered 10/03/18 Ordered By: Claudia Rico Admission Data Admit Date/Time: 10/01/18 12:47 Attending Provider: Claudia Rico Admit Provider: Bhanu Roth Primary Care Provider: Mecca Munoz Other Providers: Elena Chavez ; Manny Keller ; Bhanu Roth Service: Telemetry Other Interventions: Discharge Summary Assessment (RN) Last Done: 10/03/18 12:32 DC Date/Time DO NOT enter until pt leaves facility: 10/03/18 14:00
== END 2018-10-03 14:00 | disposition home or self-care (01) ==
LOC: ED 09:28 → 2S 09:28